=== PATIENT | male | born 1990 | race Asian ===

== ENCOUNTER 2017-10-10 23:21 | Inpatient (IN) | payer OTHER ==
--- NOTE | 2017-10-11 00:37 | PDOC ---
History of Present Illness - General Chief Complaint: Edema Stated Complaint: SWELLING TO BOTH LEGS AND SCROTUM X 5 DAYS History Source: Patient Exam Limitations: No Limitations - History of Present Illness Initial Comments: 10/11/17 01:16 27M no known sig PMHx (hasn't seen a doctor in >6 years) p/w cc of 1 week of progressive swelling to bilateral legs, extending to scrotum and abdomen over past 2 days. Feels fatigued when ambulating, and SOB. No CP, occasional palpitations. Past History - Travel Traveled outside of the country in the last 30 days: No - Past Medical History Allergies/Adverse Reactions: Allergies Allergy/AdvReac Type Severity Reaction Status Date / Time No Known Allergies Allergy Verified 10/10/17 23:23 Home Medications: Ambulatory Orders NK [No Known Home Medication] 10/10/17 COPD: No Other medical history: DENIES - Suicide/Smoking/Psychosocial Hx Smoking History: Never smoked Have you smoked in the past 12 months: No Information on smoking cessation initiated: No Hx Alcohol Use: No Drug/Substance Use Hx: No Substance Use Type: None Review of Systems - Review of Systems Able to Perform ROS?: Yes Constitutional: No: Chills, Fever HEENTM: No: Blurred Vision Respiratory: Yes: Cough, Shortness of Breath Cardiac (ROS): Yes: Edema. No: Chest Pain ABD/GI: Yes: Abdominal Distended Musculoskeletal: No: Back Pain, Muscle Pain, Muscle Weakness Neurological: No: Headache, Numbness, Weakness *Physical Exam - Vital Signs Last Vital Signs Temp Pulse Resp BP Pulse Ox 114 H 20 165/114 99 10/10/17 23:32 10/10/17 23:32 10/10/17 23:32 10/10/17 23:32 - Physical Exam General Appearance: Yes: Nourished, Obese. No: Appropriately Dressed, Apparent Distress HEENT: positive: Normal ENT Inspection, Symmetrical Neck: positive: Trachea midline. negative: Tender Respiratory/Chest: positive: Lungs Clear, Normal Breath Sounds. negative: Respiratory Distress Cardiovascular: positive: Regular Rhythm, S1, S2, Edema, Tachycardia Gastrointestinal/Abdominal: positive: Other (obese, +pitting edema to lower abdomen) Male Genitalia: positive: other (2+ pitting edema to scrotum) Extremity: positive: Swelling, Other (3+ pitting edema to bilateral LE, equal, nontender, no skin changes) Integumentary: positive: Normal Color, Dry, Warm Neurologic: positive: recreational sports director II-XII NML intact, Fully Oriented, Alert ED Treatment Course - LABORATORY CBC & Chemistry Diagram: 10/11/17 01:00 10/11/17 01:00 - Consult/PCP Case discussed with personal care physician: Adan Lentz (admit telemetry at [facility]) - Additional Consults Time Called: 05:00 Consult/PCP: Cam, ICU CHARGE HAND Reason/Comments: Pt to be admitted to ICU at [facility] when a bed is available Medical Decision Making - Medical Decision Making 10/11/17 01:21 Pt with progressiv pitting edema which began in bilateral legs, has progressed to scrotum and lower abd, c/w anasarca. No hx of renal or cardiac pathology. Also tachycardic (sinus), hypertensive. Ddx includes nephrotic syndrome, CHF, PE , ACS. Does have f/u tomorrow with a web designer. - labs including trop, pro bnp, d dimer - CXR - EKG - UA - reassess, anticipate admission 10/11/17 02:39 d dimer pos, will proceed with CT chest to r/o PE 10/11/17 02:57 Troponin 0.13, probnp in . Will give asa 162mg PO. Pt will require tele admission/echo/cards consult inpatient. Remains CP free. CT pending. 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 No gross evidence of PE but there was suboptimal opacification of the pulmonary arteries. Heart size is normal. The trachea and bronchi are patent. There is a 1.5cm thick pericardial effusion. There is a moderate-sized R pleural effusion with mild bibasilar atelectasis but no obvious pneumonia. There is mild scattered air trapping. No interstitial edema. No fractures identified. There is a small amount of incompletely seen ascites of uncertain cause. Moderate R pleural effusion Moderate size pericardial effusion Incompletely visualized small amount of ascites 10/11/17 05:[address] Lentz and CHARGE HAND Cam from ICU. Pt accepted to ICU pending an available bed. Will give PO labetalol for HTN. 10/11/17 05:17 Because of pericardial effusion, I'm apprehensive to give labetalol or any other anti-hypertensive as pt is currently stable. He does have elevated BP in ER, but it is most likely that it's been high for quite some time. There are no ICU beds, there are no interventional resources in this ER if pt decompensates. Right now, he looks well and BP has remained the same during his stay. Will hold labetalol, but will give lasix. 10/11/17 06:35 Pt still appears comfortable, no resp distress. Received IV lasix 40mg, BP now 175/105. RR on my exam is 18 breaths per minute at this time. Has urinated 3 times since lasix. I spoke again to ICU CHARGE HAND Cam - the RN finishing supervisor plastic sheets is reportedly working on making an ICU bed for pt at [facility]. Will sign patient out at 7am to am physician. *DC/Admit/Observation/Transfer Diagnosis at time of Disposition: CHF (congestive heart failure), Pericardial effusion - Discharge Dispostion Condition at time of disposition: Guarded Admit: Yes - Referrals - Patient Instructions - Post Discharge Activity
[2017-10-11 02:17] LABS: BASO % 0.4 % (0-2.0); EOS % 1.4 % (0-4.5); HEMATOCRIT 42.8 % (35.4-49); HEMOGLOBIN 14.2 GM/dL (11.7-16.9); LYMPH % 18.9 % (8-40); MCH 29.7 pg (25.7-33.7); MCHC 33.2 g/dl (32.0-35.9); MEAN CELL VOLUME 89.6 fl (80-96); MEAN PLT VOLUME 9.2 fl (7.5-11.1); MONO % 11.2 % (3.8-10.2); NEUT % 68.1 % (42.8-82.8); PLATELET COUNT 246 K/MM3 (134-434); RBC 4.78 M/mm3 (4.00-5.60); WHITE BLOOD COUNT 9.8 K/mm3 (4.0-10.0)
[2017-10-11 02:19] LABS: VENOUS PC02 44.7 mmHg (38-52); VENOUS PH 7.37 (7.32-7.42)
[2017-10-11 02:20] LABS: VENOUS PO2 34.2 mmHg (28-48)
[2017-10-11 02:26] LABS: INR 1.27 (0.82-1.09); PROTHROMBIN TIME (PATIENT) 14.4 SEC (9.98-11.88)
[2017-10-11 02:29] LABS: ACTIVATED PTT 32.6 SECONDS (26.9-34.4)
[2017-10-11 02:40] LABS: N-TERMINAL BNP 2148.16 pg/ml (5-125)
[2017-10-11] MEDS ORDERED: ASPIRIN 81 MG CHEWABLE TABLETS ONE (02:49)
[2017-10-11] MEDS ORDERED: ASPIRIN 81 MG CHEWABLE TABLETS PO ONE (02:49)
[2017-10-11 03:06] LABS: GLUCOSE,RANDOM 99 mg/dl (74-106)
[2017-10-11 03:07] LABS: ANION GAP 12 (8-16); BLOOD UREA NITROGEN 14 mg/dl (7-18); CALCIUM 8.7 mg/dl (8.4-10.2); CHLORIDE 106 mmol/L (98-107); CO2 26 mmol/L (22-28); CREATININE 0.9 mg/dl (0.6-1.3); SODIUM 144 mmol/L (136-145); TOT PROT 7.5 g/dl (6.4-8.3)
[2017-10-11 03:08] LABS: ALBUMIN 3.8 g/dl (3.5-5.0); ALK PHOS 72 U/L (32-92); BILIRUBIN,TOTAL 1.2 mg/dl (0.2-1.0); SGOT/AST 31 U/L (10-42); SGPT/ALT 33 U/L (10-40)
[2017-10-11 03:38] LABS: URINE APPEARANCE CLEAR; URINE BILIRUBIN NEGATIVE (<2.0 mg/dL); URINE BLOOD NEGATIVE (NEGATIVE); URINE COLOR YELLOW; URINE GLUCOSE (UA) NEGATIVE (NEGATIVE); URINE KETONE NEGATIVE (NEGATIVE); URINE LEUK ESTERASE NEGATIVE (NEGATIVE); URINE NITRITE NEGATIVE (NEGATIVE); URINE UROBILINOGEN NEGATIVE mg/dL (0.2-1.0)
[2017-10-11 03:44] LABS: URINE PROTEIN 2+ (NEGATIVE)
[2017-10-11 03:46] LABS: URINE BACTERIA RARE /hpf (NONE SEEN); URINE MUCUS RARE
[2017-10-11] MEDS ORDERED: LABETALOL HCL 5 MG/1 ML (100MG/20 ML VIAL) IVPUSH ONE (04:46)
[2017-10-11] MEDS ORDERED: LABETALOL HCL 5 MG/1 ML (100MG/20 ML VIAL) ONE (04:52)
[2017-10-11] MEDS ORDERED: FUROSEMIDE 40 MG/4 ML INJECTABLE VIAL IVPUSH ONE ×2 (05:33→16:15)
[2017-10-11] MEDS ORDERED: HEPARIN NA (PORCINE) 5,000 UNITS/ML 1ML VIAL ONE ×2 (05:53→14:36)
[2017-10-11] MEDS ORDERED: FUROSEMIDE 40 MG/4 ML INJECTABLE VIAL ONE (05:54)
[2017-10-11] MEDS: HEPARIN NA (PORCINE) 5,000 UNITS/ML 1ML VIAL SQ SCH ×3 (06:11→23:09)
[2017-10-11 07:19] LABS: BASO % 0.3 % (0-2.0); EOS % 1.3 % (0-4.5); HEMATOCRIT 42.5 % (35.4-49); HEMOGLOBIN 13.9 GM/dL (11.7-16.9); LYMPH % 19.1 % (8-40); MCH 29.3 pg (25.7-33.7); MCHC 32.6 g/dl (32.0-35.9); MEAN CELL VOLUME 89.9 fl (80-96); MEAN PLT VOLUME 9.3 fl (7.5-11.1); MONO % 9.6 % (3.8-10.2); NEUT % 69.7 % (42.8-82.8); PLATELET COUNT 250 K/MM3 (134-434); RBC 4.72 M/mm3 (4.00-5.60); RDW 14.9 % (11.9-15.9); WHITE BLOOD COUNT 10.7 K/mm3 (4.0-10.0)
[2017-10-11 08:50] LABS: MAGNESIUM 2.1 mg/dL (1.8-2.4)
[2017-10-11 12:10] LABS: ANION GAP 8 (8-16); BLOOD UREA NITROGEN 11 mg/dl (7-18); CALCIUM 8.8 mg/dl (8.4-10.2); CHLORIDE 102 mmol/L (98-107); CO2 26 mmol/L (22-28); CREATININE 0.8 mg/dl (0.6-1.3); GLUCOSE,RANDOM 92 mg/dl (74-106); POTASSIUM 3.3 mmol/L (3.5-5.1); SODIUM 136 mmol/L (136-145)
[2017-10-11 15:46] VITALS: BMI 49.0
--- NOTE | 2017-10-11 16:08 | CONSULT ---
Consultation: REQUESTING PROVIDER: CONSULT REQUEST: We have been asked to medically evaluate this patient for lower extremity edema. HISTORY OF PRESENT ILLNESS: Mr. Craig is a 27 yo male w/ no known pmh (no physician visits in 6+ years) who presented to [place] [facility] complaining of 1 week of progressive (painless) swelling in both legs. He reports that approximately 4 days ago his scrotum started swelling as well and has waxed and wained in size over this time period. He presented as the swelling got worse in his scrotum and he was concerned. He has not previously seen a doctor in many years. Mr. Craig further reports that he is usually able to walk without difficulty but that he has had difficulty standing for longer periods of time lately. He further reports that he had an illness last may that consisted of cough and sinus symptoms with yellow/green sputum but that they never fully resolved and he has continued to have cough productive of thick clear sputum since this time. He denies chest pain, headache, and dizziness. Denies fever, chills, nausea, vomit, diarrhea, and constipation. Denies dysuria, frequency, urgency, and hematuria. In ER patient was noted to be tachycardic in sinus rhythm with hypertension. Chest CT was ordered when patient was noted to have positive d-dimer; positive for moderate right pleural effusion with bibasilar atelectasis and moderate pericardial effusion (1.5cm thick) without obvious pneumonia. Heart size is normal. The trachea and bronchi are patent. Patient remained comfortable throughout ER course, received IV lasix 40mg with BP 175/105 and urinated 3 times since lasix. Transferred to ICU for further care. REVIEW OF SYSTEMS: CONSTITUTIONAL: Absent: fever, chills, diaphoresis, generalized weakness, malaise, loss of appetite, weight change HEENT: Absent: rhinorrhea, nasal congestion, throat pain, throat swelling, difficulty swallowing, mouth swelling, ear pain, eye pain, visual changes CARDIOVASCULAR: Absent: chest pain, syncope, palpitations, irregular heart rate, lightheadedness , peripheral edema RESPIRATORY: +Cough as described with mild dyspnea on exertion. Absent: Orthopnea, wheezing, stridor, hemoptysis GASTROINTESTINAL: Absent: abdominal pain, abdominal distension, nausea, vomiting, diarrhea, constipation, melena, hematochezia GENITOURINARY: Absent: dysuria, frequency, urgency, hesitancy, hematuria, flank pain, genital pain MUSCULOSKELETAL: +Bilateral leg swelling with extension to scrotum that has increased over the past week. Absent: myalgia, arthralgia, back pain, neck pain SKIN: Absent: rash, itching, pallor HEMATOLOGIC/IMMUNOLOGIC: Absent: easy bleeding, easy bruising, lymphadenopathy, frequent infections ENDOCRINE: Absent: unexplained weight gain, unexplained weight loss, heat intolerance, cold intolerance NEUROLOGIC: Absent: headache, focal weakness or paresthesias, dizziness, unsteady gait, seizure, mental status changes, bladder or bowel incontinence PSYCHIATRIC: Absent: anxiety, depression, suicidal or homicidal ideation, hallucinations. PHYSICAL EXAMINATION Vital Signs - 24 hr 10/10/17 10/10/17 10/11/17 23:25 23:32 02:38 Temperature Pulse Rate 116 H Pulse Rate [ Apical] Pulse Rate [ 114 H 116 H Left] Respiratory 20 20 20 Rate Blood Pressure 178/128 Blood Pressure [Left Arm] Blood Pressure 165/114 192/131 [Right] O2 Sat by Pulse 99 99 98 Oximetry (%) 10/11/17 10/11/17 10/11/17 05:39 06:26 07:15 Temperature Pulse Rate Pulse Rate [ 115 H Apical] Pulse Rate [ 116 H 117 H Left] Respiratory 26 H 28 H 20 Rate Blood Pressure Blood Pressure 168/109 [Left Arm] Blood Pressure 180/125 175/105 [Right] O2 Sat by Pulse 97 97 98 Oximetry (%) 10/11/17 10/11/17 10/11/17 08:09 08:11 09:00 Temperature Pulse Rate 110 H Pulse Rate [ 110 H 110 H Apical] Pulse Rate [ Left] Respiratory 24 28 H Rate Blood Pressure Blood Pressure 175/111 [Left Arm] Blood Pressure [Right] O2 Sat by Pulse 97 97 96 Oximetry (%) 10/11/17 10/11/17 10/11/17 10:07 10:31 12:15 Temperature 98.7 F Pulse Rate Pulse Rate [ 109 H 111 H Apical] Pulse Rate [ Left] Respiratory 28 H 26 H Rate Blood Pressure Blood Pressure 177/109 155/103 [Left Arm] Blood Pressure [Right] O2 Sat by Pulse 95 96 Oximetry (%) 10/11/17 10/11/17 10/11/17 12:51 14:40 15:00 Temperature 97.8 F 97.8 F 98.1 F Pulse Rate 112 H 112 H 110 H Pulse Rate [ Apical] Pulse Rate [ Left] Respiratory 26 H 26 H 23 Rate Blood Pressure 155/101 155/101 176/112 Blood Pressure [Left Arm] Blood Pressure [Right] O2 Sat by Pulse Oximetry (%) 10/11/17 10/11/17 15:27 15:58 Temperature 98.9 F Pulse Rate 110 H 112 H Pulse Rate [ Apical] Pulse Rate [ Left] Respiratory 26 H 25 H Rate Blood Pressure 193/131 172/116 Blood Pressure [Left Arm] Blood Pressure [Right] O2 Sat by Pulse Oximetry (%) GENERAL: Awake, alert, and fully oriented, in no acute distress. HEAD: Normal with no signs of trauma. EYES: Pupils equal, round and reactive to light, extraocular movements intact, sclera anicteric, conjunctiva clear. No lid lag. EARS, NOSE, THROAT: Ears normal, nares patent, oropharynx clear without exudates. Moist mucous membranes. NECK: Normal range of motion, supple without lymphadenopathy, JVD, or masses. LUNGS: Breath sounds equal, clear to auscultation bilaterally. No wheezes, and no crackles. No accessory muscle use. HEART: Regular rate and rhythm, normal S1 and S2 without murmur, rub or gallop. ABDOMEN: Soft, nontender, not distended, normoactive bowel sounds, no guarding, no rebound, no masses. No hepatomegaly or splenomegaly. MUSCULOSKELETAL: Normal range of motion at all joints. No bony deformities or tenderness. No CVA tenderness. UPPER EXTREMITIES: 2+ pulses, warm, well-perfused. No cyanosis. No clubbing. Cap refill <2 seconds. No peripheral edema. LOWER EXTREMITIES: +Bilateral lower extremities 2+ edema noted. Patient able to range legs however swelling extends up to include lower stomach and scrotum which is swollen to approximately the size of a baseball (3+ edema). 2+ pulses, warm, well-perfused. No calf tenderness. NEUROLOGICAL: Cranial nerves II-XII intact. Normal speech. Normal gait. PSYCHIATRIC: Cooperative. Good eye contact. Appropriate mood and affect. SKIN: Warm, dry, normal turgor, no rashes or lesions noted. Laboratory Results - last 24 hr 10/11/17 10/11/17 10/11/17 01:00 01:00 01:00 WBC 9.8 D RBC 4.78 Hgb 14.2 Hct 42.8 MCV 89.6 MCH 29.7 MCHC 33.2 RDW 15.0 D Plt Count 246 MPV 9.2 D Neutrophils % 68.1 Lymphocytes % 18.9 Monocytes % 11.2 H Eosinophils % 1.4 Basophils % 0.4 PT with INR 14.40 H INR 1.27 H PTT (Actin FS) 32.6 D-Dimer VBG pH 7.37 POC VBG pCO2 44.7 POC VBG pO2 34.2 Mixed VBG HCO3 25.4 H Sodium Potassium Chloride Carbon Dioxide Anion Gap BUN Creatinine Creat Clearance w eGFR Random Glucose Hemoglobin A1c % Calcium Magnesium Total Bilirubin AST ALT Alkaline Phosphatase Creatine Kinase Creatine Kinase Index CK-MB (CK-2) Troponin I B-Natriuretic Peptide Total Protein Albumin Triglycerides Cholesterol Total LDL Cholesterol HDL Cholesterol Urine Color Urine Appearance Urine pH Ur Specific [place] Urine Protein Urine Glucose (UA) Urine Ketones Urine Blood Urine Nitrite Urine Bilirubin Urine Urobilinogen Ur Leukocyte Esterase Urine WBC (Auto) Urine RBC (Auto) Urine Bacteria Urine Mucus 10/11/17 10/11/17 10/11/17 01:00 01:00 01:00 WBC RBC Hgb Hct MCV MCH MCHC RDW Plt Count MPV Neutrophils % Lymphocytes % Monocytes % Eosinophils % Basophils % PT with INR INR PTT (Actin FS) D-Dimer 718 H VBG pH POC VBG pCO2 POC VBG pO2 Mixed VBG HCO3 Sodium 144 Potassium 4.0 Chloride 106 Carbon Dioxide 26 Anion Gap 12 BUN 14 Creatinine 0.9 Creat Clearance w eGFR > 60 Random Glucose 99 Hemoglobin A1c % Calcium 8.7 Magnesium Total Bilirubin 1.2 H AST 31 ALT 33 Alkaline Phosphatase 72 Creatine Kinase 191 Creatine Kinase Index 0.6 CK-MB (CK-2) 1.2 Troponin I 0.13 H 0.08 H B-Natriuretic Peptide 2148.16 H Total Protein 7.5 Albumin 3.8 Triglycerides Cholesterol Total LDL Cholesterol HDL Cholesterol Urine Color Urine Appearance Urine pH Ur Specific [place] Urine Protein Urine Glucose (UA) Urine Ketones Urine Blood Urine Nitrite Urine Bilirubin Urine Urobilinogen Ur Leukocyte Esterase Urine WBC (Auto) Urine RBC (Auto) Urine Bacteria Urine Mucus 10/11/17 10/11/17 10/11/17 03:00 06:00 06:00 WBC RBC Hgb Hct MCV MCH MCHC RDW Plt Count MPV Neutrophils % Lymphocytes % Monocytes % Eosinophils % Basophils % PT with INR INR PTT (Actin FS) D-Dimer VBG pH POC VBG pCO2 POC VBG pO2 Mixed VBG HCO3 Sodium Potassium Chloride Carbon Dioxide Anion Gap BUN Creatinine Creat Clearance w eGFR Random Glucose Hemoglobin A1c % Calcium Magnesium 2.1 Total Bilirubin AST ALT Alkaline Phosphatase Creatine Kinase 168 Creatine Kinase Index 0.6 CK-MB (CK-2) 1.089 Troponin I 0.09 H D B-Natriuretic Peptide Total Protein Albumin Triglycerides 58 Cholesterol 122 D Total LDL Cholesterol 104 H HDL Cholesterol 22 L D Urine Color Yellow Urine Appearance Clear Urine pH 6.0 Ur Specific [place] 1.015 Urine Protein 2+ H Urine Glucose (UA) Negative Urine Ketones Negative Urine Blood Negative Urine Nitrite Negative Urine Bilirubin Negative Urine Urobilinogen Negative Ur Leukocyte Esterase Negative Urine WBC (Auto) 1 Urine RBC (Auto) <1 Urine Bacteria Rare Urine Mucus Rare 10/11/17 10/11/17 10/11/17 06:00 06:00 06:00 WBC 10.7 H RBC 4.72 Hgb 13.9 Hct 42.5 MCV 89.9 MCH 29.3 MCHC 32.6 RDW 14.9 Plt Count 250 MPV 9.3 Neutrophils % 69.7 Lymphocytes % 19.1 Monocytes % 9.6 Eosinophils % 1.3 Basophils % 0.3 PT with INR INR PTT (Actin FS) D-Dimer VBG pH POC VBG pCO2 POC VBG pO2 Mixed VBG HCO3 Sodium Potassium Chloride Carbon Dioxide Anion Gap BUN Creatinine Creat Clearance w eGFR Random Glucose Hemoglobin A1c % 6.2 H Calcium Magnesium Total Bilirubin AST ALT Alkaline Phosphatase Creatine Kinase Creatine Kinase Index CK-MB (CK-2) Troponin I Cancelled B-Natriuretic Peptide Total Protein Albumin Triglycerides Cholesterol Total LDL Cholesterol HDL Cholesterol Urine Color Urine Appearance Urine pH Ur Specific [place] Urine Protein Urine Glucose (UA) Urine Ketones Urine Blood Urine Nitrite Urine Bilirubin Urine Urobilinogen Ur Leukocyte Esterase Urine WBC (Auto) Urine RBC (Auto) Urine Bacteria Urine Mucus 10/11/17 10/11/17 11:15 11:15 WBC RBC Hgb Hct MCV MCH MCHC RDW Plt Count MPV Neutrophils % Lymphocytes % Monocytes % Eosinophils % Basophils % PT with INR INR PTT (Actin FS) D-Dimer VBG pH POC VBG pCO2 POC VBG pO2 Mixed VBG HCO3 Sodium 136 Potassium 3.3 L Chloride 102 Carbon Dioxide 26 Anion Gap 8 BUN 11 D Creatinine 0.8 Creat Clearance w eGFR Random Glucose 92 Hemoglobin A1c % Calcium 8.8 Magnesium Total Bilirubin AST ALT Alkaline Phosphatase Creatine Kinase Creatine Kinase Index CK-MB (CK-2) Troponin I 0.05 D B-Natriuretic Peptide Total Protein Albumin Triglycerides Cholesterol Total LDL Cholesterol HDL Cholesterol Urine Color Urine Appearance Urine pH Ur Specific [place] Urine Protein Urine Glucose (UA) Urine Ketones Urine Blood Urine Nitrite Urine Bilirubin Urine Urobilinogen Ur Leukocyte Esterase Urine WBC (Auto) Urine RBC (Auto) Urine Bacteria Urine Mucus Active Medications Generic Name Dose Route Start Last Admin Trade Name Freq PRN Reason Stop Dose Admin Heparin Sodium (Porcine) 5,000 unit 10/11/17 06:00 10/11/17 14:39 Heparin - SQ 5,000 unit TID RADHA Administration Potassium Chloride 40 meq 10/11/17 16:43 10/11/17 15:55 K-Dur - PO 10/11/17 16:44 40 meq ONCE ONE Administration ASSESSMENT/PLAN: Mr. Craig is a 27 yo male w/ no known medical history who presents in fluid overload with 2+ lower extremity and 3+ scrotal edema. Echo concerning for heart failure with CT showing pleural and cardiac effusion. Neuro: Neurologically at baseline Respiratory: -Right pleural effusion -Will monitor with CXR - patient currently satting 97% on room air Cardiovascular: -Moderate pericardial effusion -EF noted to be 44.6% on Echo; wet read by assistant service manager questioned this value and suspected it was closer to 35%. -Patient currently receiving Lasix for diuresis -Lisinopril / Coreg for BP control -Dr. Miller consulted for further evaluation Renal: -Will continue to follow BUN/CR FEN: -Will avoid fluids due to fluid overload status. Currently diuresing with lasix boluses -Electrolyte replacement PRN -Sodium restricted diet PPX: -SQH Dispo: We will continue to follow the patient. Thank you for this consultative opportunity. Visit type - Emergency Visit Emergency Visit: Yes ED Registration Date: 10/11/17 Care time: The patient presented to the Emergency Department on the above date and was hospitalized for further evaluation of their emergent condition. - New Patient This patient is new to me today: Yes Date on this admission: 10/11/17 - Critical Care Critical Care patient: Yes Total Critical Care Time (in minutes): 45 Critical Care Statement: The care of this patient involved high complexity decision making to prevent further life threatening deterioration of the patient 's condition and/or to evaluate & treat vital organ system(s) failure or risk of failure.
[2017-10-11] MEDS ORDERED: LISINOPRIL 5 MG TABLET (FP) PO ONE (16:14)
--- NOTE | 2017-10-11 16:36 | HP ---
CHIEF COMPLAINT: PCP: HISTORY OF PRESENT ILLNESS: ER course was notable for: (1) (2) (3) Recent Travel: PAST MEDICAL HISTORY: PAST SURGICAL HISTORY: Social History: Smoking: Alcohol: Drugs: Family History: Allergies No Known Allergies Allergy (Verified 10/10/17 23:23) HOME MEDICATIONS: Home Medications Medication Instructions Recorded NK [No Known Home Medication] 10/10/17 REVIEW OF SYSTEMS CONSTITUTIONAL: Absent: fever, chills, diaphoresis, generalized weakness, malaise, loss of appetite, weight change HEENT: Absent: rhinorrhea, nasal congestion, throat pain, throat swelling, difficulty swallowing, mouth swelling, ear pain, eye pain, visual changes CARDIOVASCULAR: Absent: chest pain, syncope, palpitations, irregular heart rate, lightheadedness , peripheral edema RESPIRATORY: Absent: cough, shortness of breath, dyspnea with exertion, orthopnea, wheezing, stridor, hemoptysis GASTROINTESTINAL: Absent: abdominal pain, abdominal distension, nausea, vomiting, diarrhea, constipation, melena, hematochezia GENITOURINARY: Absent: dysuria, frequency, urgency, hesitancy, hematuria, flank pain, genital pain MUSCULOSKELETAL: Absent: myalgia, arthralgia, joint swelling, back pain, neck pain SKIN: Absent: rash, itching, pallor HEMATOLOGIC/IMMUNOLOGIC: Absent: easy bleeding, easy bruising, lymphadenopathy, frequent infections ENDOCRINE: Absent: unexplained weight gain, unexplained weight loss, heat intolerance, cold intolerance NEUROLOGIC: Absent: headache, focal weakness or paresthesias, dizziness, unsteady gait, seizure, mental status changes, bladder or bowel incontinence PSYCHIATRIC: Absent: anxiety, depression, suicidal or homicidal ideation, hallucinations. PHYSICAL EXAMINATION Vital Signs - 24 hr 10/10/17 10/10/17 10/11/17 23:25 23:32 02:38 Temperature Pulse Rate 116 H Pulse Rate [ Apical] Pulse Rate [ 114 H 116 H Left] Respiratory 20 20 20 Rate Blood Pressure 178/128 Blood Pressure [Left Arm] Blood Pressure 165/114 192/131 [Right] O2 Sat by Pulse 99 99 98 Oximetry (%) 10/11/17 10/11/17 10/11/17 05:39 06:26 07:15 Temperature Pulse Rate Pulse Rate [ 115 H Apical] Pulse Rate [ 116 H 117 H Left] Respiratory 26 H 28 H 20 Rate Blood Pressure Blood Pressure 168/109 [Left Arm] Blood Pressure 180/125 175/105 [Right] O2 Sat by Pulse 97 97 98 Oximetry (%) 10/11/17 10/11/17 10/11/17 08:09 08:11 09:00 Temperature Pulse Rate 110 H Pulse Rate [ 110 H 110 H Apical] Pulse Rate [ Left] Respiratory 24 28 H Rate Blood Pressure Blood Pressure 175/111 [Left Arm] Blood Pressure [Right] O2 Sat by Pulse 97 97 96 Oximetry (%) 10/11/17 10/11/17 10/11/17 10:07 10:31 12:15 Temperature 98.7 F Pulse Rate Pulse Rate [ 109 H 111 H Apical] Pulse Rate [ Left] Respiratory 28 H 26 H Rate Blood Pressure Blood Pressure 177/109 155/103 [Left Arm] Blood Pressure [Right] O2 Sat by Pulse 95 96 Oximetry (%) 10/11/17 10/11/17 10/11/17 12:51 14:40 15:00 Temperature 97.8 F 97.8 F 98.1 F Pulse Rate 112 H 112 H 110 H Pulse Rate [ Apical] Pulse Rate [ Left] Respiratory 26 H 26 H 23 Rate Blood Pressure 155/101 155/101 176/112 Blood Pressure [Left Arm] Blood Pressure [Right] O2 Sat by Pulse Oximetry (%) 10/11/17 10/11/17 10/11/17 15:27 15:58 15:59 Temperature 98.9 F Pulse Rate 110 H 112 H Pulse Rate [ Apical] Pulse Rate [ Left] Respiratory 26 H 25 H Rate Blood Pressure 193/131 172/116 Blood Pressure [Left Arm] Blood Pressure [Right] O2 Sat by Pulse 96 Oximetry (%) GENERAL: Awake, alert, and fully oriented, in no acute distress. HEAD: Normal with no signs of trauma. EYES: Pupils equal, round and reactive to light, extraocular movements intact, sclera anicteric, conjunctiva clear. No lid lag. EARS, NOSE, THROAT: Ears normal, nares patent, oropharynx clear without exudates. Moist mucous membranes. NECK: Normal range of motion, supple without lymphadenopathy, JVD, or masses. LUNGS: Breath sounds equal, clear to auscultation bilaterally. No wheezes, and no crackles. No accessory muscle use. HEART: Regular rate and rhythm, normal S1 and S2 without murmur, rub or gallop. ABDOMEN: Soft, nontender, not distended, normoactive bowel sounds, no guarding, no rebound, no masses. No hepatomegaly or splenomegaly. MUSCULOSKELETAL: Normal range of motion at all joints. No bony deformities or tenderness. No CVA tenderness. UPPER EXTREMITIES: 2+ pulses, warm, well-perfused. No cyanosis. No clubbing. No peripheral edema. LOWER EXTREMITIES: 2+ pulses, warm, well-perfused. No calf tenderness. No peripheral edema. NEUROLOGICAL: Cranial nerves II-XII intact. Normal speech. Normal gait. PSYCHIATRIC: Cooperative. Good eye contact. Appropriate mood and affect. SKIN: Warm, dry, normal turgor, no rashes or lesions noted, normal capillary refill. Laboratory Results - last 24 hr 10/11/17 10/11/17 10/11/17 01:00 01:00 01:00 WBC 9.8 D RBC 4.78 Hgb 14.2 Hct 42.8 MCV 89.6 MCH 29.7 MCHC 33.2 RDW 15.0 D Plt Count 246 MPV 9.2 D Neutrophils % 68.1 Lymphocytes % 18.9 Monocytes % 11.2 H Eosinophils % 1.4 Basophils % 0.4 PT with INR 14.40 H INR 1.27 H PTT (Actin FS) 32.6 D-Dimer VBG pH 7.37 POC VBG pCO2 44.7 POC VBG pO2 34.2 Mixed VBG HCO3 25.4 H Sodium Potassium Chloride Carbon Dioxide Anion Gap BUN Creatinine Creat Clearance w eGFR Random Glucose Hemoglobin A1c % Calcium Magnesium Total Bilirubin AST ALT Alkaline Phosphatase Creatine Kinase Creatine Kinase Index CK-MB (CK-2) Troponin I B-Natriuretic Peptide Total Protein Albumin Triglycerides Cholesterol Total LDL Cholesterol HDL Cholesterol Urine Color Urine Appearance Urine pH Ur Specific [place] Urine Protein Urine Glucose (UA) Urine Ketones Urine Blood Urine Nitrite Urine Bilirubin Urine Urobilinogen Ur Leukocyte Esterase Urine WBC (Auto) Urine RBC (Auto) Urine Bacteria Urine Mucus 10/11/17 10/11/17 10/11/17 01:00 01:00 01:00 WBC RBC Hgb Hct MCV MCH MCHC RDW Plt Count MPV Neutrophils % Lymphocytes % Monocytes % Eosinophils % Basophils % PT with INR INR PTT (Actin FS) D-Dimer 718 H VBG pH POC VBG pCO2 POC VBG pO2 Mixed VBG HCO3 Sodium 144 Potassium 4.0 Chloride 106 Carbon Dioxide 26 Anion Gap 12 BUN 14 Creatinine 0.9 Creat Clearance w eGFR > 60 Random Glucose 99 Hemoglobin A1c % Calcium 8.7 Magnesium Total Bilirubin 1.2 H AST 31 ALT 33 Alkaline Phosphatase 72 Creatine Kinase 191 Creatine Kinase Index 0.6 CK-MB (CK-2) 1.2 Troponin I 0.13 H 0.08 H B-Natriuretic Peptide 2148.16 H Total Protein 7.5 Albumin 3.8 Triglycerides Cholesterol Total LDL Cholesterol HDL Cholesterol Urine Color Urine Appearance Urine pH Ur Specific [place] Urine Protein Urine Glucose (UA) Urine Ketones Urine Blood Urine Nitrite Urine Bilirubin Urine Urobilinogen Ur Leukocyte Esterase Urine WBC (Auto) Urine RBC (Auto) Urine Bacteria Urine Mucus 10/11/17 10/11/17 10/11/17 03:00 06:00 06:00 WBC RBC Hgb Hct MCV MCH MCHC RDW Plt Count MPV Neutrophils % Lymphocytes % Monocytes % Eosinophils % Basophils % PT with INR INR PTT (Actin FS) D-Dimer VBG pH POC VBG pCO2 POC VBG pO2 Mixed VBG HCO3 Sodium Potassium Chloride Carbon Dioxide Anion Gap BUN Creatinine Creat Clearance w eGFR Random Glucose Hemoglobin A1c % Calcium Magnesium 2.1 Total Bilirubin AST ALT Alkaline Phosphatase Creatine Kinase 168 Creatine Kinase Index 0.6 CK-MB (CK-2) 1.089 Troponin I 0.09 H D B-Natriuretic Peptide Total Protein Albumin Triglycerides 58 Cholesterol 122 D Total LDL Cholesterol 104 H HDL Cholesterol 22 L D Urine Color Yellow Urine Appearance Clear Urine pH 6.0 Ur Specific [place] 1.015 Urine Protein 2+ H Urine Glucose (UA) Negative Urine Ketones Negative Urine Blood Negative Urine Nitrite Negative Urine Bilirubin Negative Urine Urobilinogen Negative Ur Leukocyte Esterase Negative Urine WBC (Auto) 1 Urine RBC (Auto) <1 Urine Bacteria Rare Urine Mucus Rare 10/11/17 10/11/17 10/11/17 06:00 06:00 06:00 WBC 10.7 H RBC 4.72 Hgb 13.9 Hct 42.5 MCV 89.9 MCH 29.3 MCHC 32.6 RDW 14.9 Plt Count 250 MPV 9.3 Neutrophils % 69.7 Lymphocytes % 19.1 Monocytes % 9.6 Eosinophils % 1.3 Basophils % 0.3 PT with INR INR PTT (Actin FS) D-Dimer VBG pH POC VBG pCO2 POC VBG pO2 Mixed VBG HCO3 Sodium Potassium Chloride Carbon Dioxide Anion Gap BUN Creatinine Creat Clearance w eGFR Random Glucose Hemoglobin A1c % 6.2 H Calcium Magnesium Total Bilirubin AST ALT Alkaline Phosphatase Creatine Kinase Creatine Kinase Index CK-MB (CK-2) Troponin I Cancelled B-Natriuretic Peptide Total Protein Albumin Triglycerides Cholesterol Total LDL Cholesterol HDL Cholesterol Urine Color Urine Appearance Urine pH Ur Specific [place] Urine Protein Urine Glucose (UA) Urine Ketones Urine Blood Urine Nitrite Urine Bilirubin Urine Urobilinogen Ur Leukocyte Esterase Urine WBC (Auto) Urine RBC (Auto) Urine Bacteria Urine Mucus 10/11/17 10/11/17 11:15 11:15 WBC RBC Hgb Hct MCV MCH MCHC RDW Plt Count MPV Neutrophils % Lymphocytes % Monocytes % Eosinophils % Basophils % PT with INR INR PTT (Actin FS) D-Dimer VBG pH POC VBG pCO2 POC VBG pO2 Mixed VBG HCO3 Sodium 136 Potassium 3.3 L Chloride 102 Carbon Dioxide 26 Anion Gap 8 BUN 11 D Creatinine 0.8 Creat Clearance w eGFR Random Glucose 92 Hemoglobin A1c % Calcium 8.8 Magnesium Total Bilirubin AST ALT Alkaline Phosphatase Creatine Kinase Creatine Kinase Index CK-MB (CK-2) Troponin I 0.05 D B-Natriuretic Peptide Total Protein Albumin Triglycerides Cholesterol Total LDL Cholesterol HDL Cholesterol Urine Color Urine Appearance Urine pH Ur Specific [place] Urine Protein Urine Glucose (UA) Urine Ketones Urine Blood Urine Nitrite Urine Bilirubin Urine Urobilinogen Ur Leukocyte Esterase Urine WBC (Auto) Urine RBC (Auto) Urine Bacteria Urine Mucus ASSESSMENT/PLAN: Hospitalist Screening - Colonoscopy Questionnaire Colonoscopy Questionnaire: Colonoscopy Questionnaire
--- NOTE | 2017-10-11 16:39 | HP ---
CHIEF COMPLAINT: " i have scrotal swelling" PCP: none HISTORY OF PRESENT ILLNESS: This is a 27 yo m with remote history of HTN (informed 6 yrs ago during physical , no physician f/u), not on any medication, who presents due to scrotal edema x 3 days. He also reports worsening LE edema, now extending to his lower abdomen x 2 w, decreased exercise tolerance and cough productive of white sputm since may, which was preceded by a brief mild febrile illness. He has not has his BP measured in 6 yrs and does not know what it was ehen he was told its elevated. he does have a family history if HTn starting in 30's in father and hypothyroidism starting in 30's in aunt. There is also remote family history of DM2. There is not family history OF CHF or CAD. He denies orthopnea, palpitations, cp or pressure, n/v, loss of appetite, lump in throat. he suspect weight gain but has not weighed himself. He denies alcohol or drug use. Denies heat/cold intolerance. he can walk several blocks w/o sob but feels sob after climbing one flight of stairs. patient urinated 5 L after 40 IV lasix last night and states his edema is better ER course was notable for: (1) labs (2)cxr, cta (3)lasix Recent Travel: denies PAST MEDICAL HISTORY: as above PAST SURGICAL HISTORY: denies Social History: moderately active Smoking: denies Alcohol:denies Drugs: denies Family History: as above Allergies No Known Allergies Allergy (Verified 10/10/17 23:23) HOME MEDICATIONS: Home Medications Medication Instructions Recorded NK [No Known Home Medication] 10/10/17 REVIEW OF SYSTEMS CONSTITUTIONAL: Absent: fever, chills, diaphoresis, generalized weakness, malaise, loss of appetite HEENT: Absent: rhinorrhea, nasal congestion, throat pain CARDIOVASCULAR: Absent: chest pain, syncope, palpitations, irregular heart rate, lightheadedness RESPIRATORY: Absent: orthopnea, wheezing, stridor, hemoptysis GASTROINTESTINAL: Absent: abdominal pain, abdominal distension, nausea, vomiting, diarrhea, constipation GENITOURINARY: Absent: dysuria MUSCULOSKELETAL: Absent: back pain, neck pain SKIN: Absent: rash, itching, pallor HEMATOLOGIC/IMMUNOLOGIC: Absent: frequent infections ENDOCRINE: Absent:heat intolerance, cold intolerance NEUROLOGIC: Absent: headache, focal weakness or paresthesias PSYCHIATRIC: Absent: anxiety, depression PHYSICAL EXAMINATION Vital Signs - 24 hr 10/10/17 10/10/17 10/11/17 23:25 23:32 02:38 Temperature Pulse Rate 116 H Pulse Rate [ Apical] Pulse Rate [ 114 H 116 H Left] Respiratory 20 20 20 Rate Blood Pressure 178/128 Blood Pressure [Left Arm] Blood Pressure 165/114 192/131 [Right] O2 Sat by Pulse 99 99 98 Oximetry (%) 10/11/17 10/11/17 10/11/17 05:39 06:26 07:15 Temperature Pulse Rate Pulse Rate [ 115 H Apical] Pulse Rate [ 116 H 117 H Left] Respiratory 26 H 28 H 20 Rate Blood Pressure Blood Pressure 168/109 [Left Arm] Blood Pressure 180/125 175/105 [Right] O2 Sat by Pulse 97 97 98 Oximetry (%) 10/11/17 10/11/17 10/11/17 08:09 08:11 09:00 Temperature Pulse Rate 110 H Pulse Rate [ 110 H 110 H Apical] Pulse Rate [ Left] Respiratory 24 28 H Rate Blood Pressure Blood Pressure 175/111 [Left Arm] Blood Pressure [Right] O2 Sat by Pulse 97 97 96 Oximetry (%) 10/11/17 10/11/17 10/11/17 10:07 10:31 12:15 Temperature 98.7 F Pulse Rate Pulse Rate [ 109 H 111 H Apical] Pulse Rate [ Left] Respiratory 28 H 26 H Rate Blood Pressure Blood Pressure 177/109 155/103 [Left Arm] Blood Pressure [Right] O2 Sat by Pulse 95 96 Oximetry (%) 10/11/17 10/11/17 10/11/17 12:51 14:40 15:00 Temperature 97.8 F 97.8 F 98.1 F Pulse Rate 112 H 112 H 110 H Pulse Rate [ Apical] Pulse Rate [ Left] Respiratory 26 H 26 H 23 Rate Blood Pressure 155/101 155/101 176/112 Blood Pressure [Left Arm] Blood Pressure [Right] O2 Sat by Pulse Oximetry (%) 10/11/17 10/11/17 10/11/17 15:27 15:58 15:59 Temperature 98.9 F Pulse Rate 110 H 112 H Pulse Rate [ Apical] Pulse Rate [ Left] Respiratory 26 H 25 H Rate Blood Pressure 193/131 172/116 Blood Pressure [Left Arm] Blood Pressure [Right] O2 Sat by Pulse 96 Oximetry (%) GENERAL: Awake, alert, and fully oriented, in no acute distress. cushingoid appearance HEAD: Normal with no signs of trauma. EYES: Pupils equal, round and reactive to light, extraocular movements intact, sclera anicteric, conjunctiva clear. No lid lag. EARS, NOSE, THROAT:Moist mucous membranes. NECK: supple without JVD (hard to appreciate due to girth), no masses. LUNGS: r base ronchi HEART: tacy rate and regular rhythm, normal S1 and S2 systolic murmur grade 2 ABDOMEN: obese, Soft, nontender, not distended, normoactive bowel sounds, no guarding, no rebound, no masses. 2+ pitting edema up to lower stomach. Scrotum: 3+ edema baseball size, nontender MUSCULOSKELETAL: No CVA tenderness. UPPER EXTREMITIES: 2+ pulses, warm, well-perfused. No cyanosis. No clubbing. No peripheral edema. LOWER EXTREMITIES: 2+ pulses, warm, well-perfused. No calf tenderness. 3+ peripheral edema. NEUROLOGICAL: Cranial nerves II-XII grossly intact. Normal speech. PSYCHIATRIC: Cooperative. Good eye contact. Appropriate mood and affect. SKIN: Warm, dry, acanthosis nigricans on neck Laboratory Results - last 24 hr 10/11/17 10/11/17 10/11/17 01:00 01:00 01:00 WBC 9.8 D RBC 4.78 Hgb 14.2 Hct 42.8 MCV 89.6 MCH 29.7 MCHC 33.2 RDW 15.0 D Plt Count 246 MPV 9.2 D Neutrophils % 68.1 Lymphocytes % 18.9 Monocytes % 11.2 H Eosinophils % 1.4 Basophils % 0.4 PT with INR 14.40 H INR 1.27 H PTT (Actin FS) 32.6 D-Dimer VBG pH 7.37 POC VBG pCO2 44.7 POC VBG pO2 34.2 Mixed VBG HCO3 25.4 H Sodium Potassium Chloride Carbon Dioxide Anion Gap BUN Creatinine Creat Clearance w eGFR Random Glucose Hemoglobin A1c % Calcium Magnesium Total Bilirubin AST ALT Alkaline Phosphatase Creatine Kinase Creatine Kinase Index CK-MB (CK-2) Troponin I B-Natriuretic Peptide Total Protein Albumin Triglycerides Cholesterol Total LDL Cholesterol HDL Cholesterol Urine Color Urine Appearance Urine pH Ur Specific [place] Urine Protein Urine Glucose (UA) Urine Ketones Urine Blood Urine Nitrite Urine Bilirubin Urine Urobilinogen Ur Leukocyte Esterase Urine WBC (Auto) Urine RBC (Auto) Urine Bacteria Urine Mucus 10/11/17 10/11/17 10/11/17 01:00 01:00 01:00 WBC RBC Hgb Hct MCV MCH MCHC RDW Plt Count MPV Neutrophils % Lymphocytes % Monocytes % Eosinophils % Basophils % PT with INR INR PTT (Actin FS) D-Dimer 718 H VBG pH POC VBG pCO2 POC VBG pO2 Mixed VBG HCO3 Sodium 144 Potassium 4.0 Chloride 106 Carbon Dioxide 26 Anion Gap 12 BUN 14 Creatinine 0.9 Creat Clearance w eGFR > 60 Random Glucose 99 Hemoglobin A1c % Calcium 8.7 Magnesium Total Bilirubin 1.2 H AST 31 ALT 33 Alkaline Phosphatase 72 Creatine Kinase 191 Creatine Kinase Index 0.6 CK-MB (CK-2) 1.2 Troponin I 0.13 H 0.08 H B-Natriuretic Peptide 2148.16 H Total Protein 7.5 Albumin 3.8 Triglycerides Cholesterol Total LDL Cholesterol HDL Cholesterol Urine Color Urine Appearance Urine pH Ur Specific [place] Urine Protein Urine Glucose (UA) Urine Ketones Urine Blood Urine Nitrite Urine Bilirubin Urine Urobilinogen Ur Leukocyte Esterase Urine WBC (Auto) Urine RBC (Auto) Urine Bacteria Urine Mucus 10/11/17 10/11/17 10/11/17 03:00 06:00 06:00 WBC RBC Hgb Hct MCV MCH MCHC RDW Plt Count MPV Neutrophils % Lymphocytes % Monocytes % Eosinophils % Basophils % PT with INR INR PTT (Actin FS) D-Dimer VBG pH POC VBG pCO2 POC VBG pO2 Mixed VBG HCO3 Sodium Potassium Chloride Carbon Dioxide Anion Gap BUN Creatinine Creat Clearance w eGFR Random Glucose Hemoglobin A1c % Calcium Magnesium 2.1 Total Bilirubin AST ALT Alkaline Phosphatase Creatine Kinase 168 Creatine Kinase Index 0.6 CK-MB (CK-2) 1.089 Troponin I 0.09 H D B-Natriuretic Peptide Total Protein Albumin Triglycerides 58 Cholesterol 122 D Total LDL Cholesterol 104 H HDL Cholesterol 22 L D Urine Color Yellow Urine Appearance Clear Urine pH 6.0 Ur Specific [place] 1.015 Urine Protein 2+ H Urine Glucose (UA) Negative Urine Ketones Negative Urine Blood Negative Urine Nitrite Negative Urine Bilirubin Negative Urine Urobilinogen Negative Ur Leukocyte Esterase Negative Urine WBC (Auto) 1 Urine RBC (Auto) <1 Urine Bacteria Rare Urine Mucus Rare 10/11/17 10/11/17 10/11/17 06:00 06:00 06:00 WBC 10.7 H RBC 4.72 Hgb 13.9 Hct 42.5 MCV 89.9 MCH 29.3 MCHC 32.6 RDW 14.9 Plt Count 250 MPV 9.3 Neutrophils % 69.7 Lymphocytes % 19.1 Monocytes % 9.6 Eosinophils % 1.3 Basophils % 0.3 PT with INR INR PTT (Actin FS) D-Dimer VBG pH POC VBG pCO2 POC VBG pO2 Mixed VBG HCO3 Sodium Potassium Chloride Carbon Dioxide Anion Gap BUN Creatinine Creat Clearance w eGFR Random Glucose Hemoglobin A1c % 6.2 H Calcium Magnesium Total Bilirubin AST ALT Alkaline Phosphatase Creatine Kinase Creatine Kinase Index CK-MB (CK-2) Troponin I Cancelled B-Natriuretic Peptide Total Protein Albumin Triglycerides Cholesterol Total LDL Cholesterol HDL Cholesterol Urine Color Urine Appearance Urine pH Ur Specific [place] Urine Protein Urine Glucose (UA) Urine Ketones Urine Blood Urine Nitrite Urine Bilirubin Urine Urobilinogen Ur Leukocyte Esterase Urine WBC (Auto) Urine RBC (Auto) Urine Bacteria Urine Mucus 10/11/17 10/11/17 11:15 11:15 WBC RBC Hgb Hct MCV MCH MCHC RDW Plt Count MPV Neutrophils % Lymphocytes % Monocytes % Eosinophils % Basophils % PT with INR INR PTT (Actin FS) D-Dimer VBG pH POC VBG pCO2 POC VBG pO2 Mixed VBG HCO3 Sodium 136 Potassium 3.3 L Chloride 102 Carbon Dioxide 26 Anion Gap 8 BUN 11 D Creatinine 0.8 Creat Clearance w eGFR Random Glucose 92 Hemoglobin A1c % Calcium 8.8 Magnesium Total Bilirubin AST ALT Alkaline Phosphatase Creatine Kinase Creatine Kinase Index CK-MB (CK-2) Troponin I 0.05 D B-Natriuretic Peptide Total Protein Albumin Triglycerides Cholesterol Total LDL Cholesterol HDL Cholesterol Urine Color Urine Appearance Urine pH Ur Specific [place] Urine Protein Urine Glucose (UA) Urine Ketones Urine Blood Urine Nitrite Urine Bilirubin Urine Urobilinogen Ur Leukocyte Esterase Urine WBC (Auto) Urine RBC (Auto) Urine Bacteria Urine Mucus ASSESSMENT/PLAN: This is a 27 yo m with remote history of HTN (informed 6 yrs ago during physical , no physician f/u), not on any medication, who presents due to scrotal edema x 3 days. Acute decompensated CHF NYHA 2 -TTE moderately/severely reduced EF, moderate pericardial effusion, moderate TR , elevated RV pressure -CTA R pleural effusion -EKG sinus tach -Renal fxn preserved, no leukocytosis NBP >2000, borderline elevated trop trended down -likely nonischemic given young age and no unusual risk factors: possible viral etiology vs HTN vs idiopathic -needs cath to r/o ischemic etiology once stabilized -strict I and O, daily weight. -tele monitoring -Daily cxr -Diuresing well so far 5L, with symptomatic improvement (80 IV lasix total since admission); continue 40 lasix IV BID -monitor mag, phos, K -start ramipril 5 daily today (show best outcomes in literature0 and titrate to max tolerated dose over weeks -start Coreg 3.125 bid tomorrow and titrate to max tolerated dose or 50 bid over weeks -will need Zoll life vest of d/c -Cardio consult -f/u workup for secondary causes: A1C, TFT's, Lipid panel, plasma cortisol, renin, angiotensin, renal vascular US Morbid Obesity -weight loss counseling -property adjuster consult FEN fluid restrict monitor lytes as above low na diet Hep sq Dispo: ICU, expect tele xfer tomorrow AM Problem List - Problem (1) CHF (congestive heart failure) Code(s): I50.9 - HEART FAILURE, UNSPECIFIED (2) Pericardial effusion Code(s): I31.3 - PERICARDIAL EFFUSION (NONINFLAMMATORY) (3) Morbid obesity Code(s): E66.01 - MORBID (SEVERE) OBESITY DUE TO EXCESS CALORIES Visit type - Emergency Visit Emergency Visit: Yes ED Registration Date: 10/11/17 Care time: The patient presented to the Emergency Department on the above date and was hospitalized for further evaluation of their emergent condition. - New Patient This patient is new to me today: Yes Date on this admission: 10/11/17 - Critical Care Critical Care patient: Yes Total Critical Care Time (in minutes): 45 Critical Care Statement: The care of this patient involved high complexity decision making to prevent further life threatening deterioration of the patient 's condition and/or to evaluate & treat vital organ system(s) failure or risk of failure. Hospitalist Screening - Colonoscopy Questionnaire Colonoscopy Questionnaire: Colonoscopy Questionnaire - Patient: 50 - 75 years old and never had a screening colonoscopy: No History of colon or rectal polyps, or CA: No History of IBD, Crohn's disease or UC: No History of abdominal radiation therapy as a child: No - Relative: 1 with colon or rectal CA, or polyps at age 60 or younger: No Colon or rectal CA diagnosed at age 45 or younger: No Multiple relatives with colon or rectal CA: No - Outcome: Screening Result: Negative Screen
[2017-10-11] MEDS ORDERED: POTASSIUM CHLORIDE TABS 20 MEQ TABLET.ER (FP) PO ONE (16:43)
[2017-10-11] MEDS ORDERED: RAMIPRIL 5 MG CAPSULE (FP) PO ONE (17:15)
--- NOTE | 2017-10-11 19:50 | PN ---
Teaching Attending Note Name of Resident: Jacinda Chun ATTENDING PHYSICIAN STATEMENT I saw and evaluated the patient. I reviewed the resident's note and discussed the case with the resident. I agree with the resident's findings and plan as documented. SUBJECTIVE: Patient is a 27 yo male with PMHx of HTN not on any medication, who presents with worsening and extensive LE edema to his scrotal area edema x 3 days. He has decreased exercise tolerance with productive cough since may and he thinks that he developed viral syndrome then and ever since then he is not the same. He states that his father had HTN since age 30yo. He can walk several blocks w/o sob but feels sob after climbing one flight of stairs. patient urinated 5 L of fluid post IV 40 lasix . OBJECTIVE: Vital Signs Temperature 98.7 F 10/11/17 18:50 Pulse Rate 105 H 10/11/17 18:50 Respiratory Rate 26 H 10/11/17 18:50 Blood Pressure 196/118 10/11/17 18:50 O2 Sat by Pulse Oximetry (%) 96 10/11/17 15:59 GENERAL: Awake, alert, and fully oriented, in no acute distress. HEAD: Normal with no signs of trauma. EYES: Pupils equal, round and reactive to light, extraocular movements intact, sclera anicteric, conjunctiva clear. No lid lag. EARS, NOSE, THROAT:Moist mucous membranes. NECK: supple, No JVD LUNGS: decreased air entry bl , and right Base Rhonchi HEART: Tachycardic , normal S1 and S2 positive , [place] 2/6 ABDOMEN: obese, Soft, nontender, not distended, normoactive bowel sounds, no guarding, no rebound, no masses. 2+ pitting edema up to lower stomach. Scrotum: 3+ edema baseball size, nontender MUSCULOSKELETAL: No CVA tenderness. EXTREMITIES: 2+ pulses, warm, well-perfused. No calf tenderness. 3+ peripheral edema. NEUROLOGICAL: Cranial nerves II-XII grossly intact. Normal speech. PSYCHIATRIC: Cooperative. Good eye contact. Appropriate mood and affect. SKIN: Warm, dry, acanthosis nigricans on neck CBCD WBC 10.7 K/mm3 (4.0-10.0) H 10/11/17 06:00 RBC 4.72 M/mm3 (4.00-5.60) 10/11/17 06:00 Hgb 13.9 GM/dL (11.7-16.9) 10/11/17 06:00 Hct 42.5 % (35.4-49) 10/11/17 06:00 MCV 89.9 fl (80-96) 10/11/17 06:00 MCHC 32.6 g/dl (32.0-35.9) 10/11/17 06:00 RDW 14.9 % (11.9-15.9) 10/11/17 06:00 Plt Count 250 K/MM3 (134-434) 10/11/17 06:00 MPV 9.3 fl (7.5-11.1) 10/11/17 06:00 CMP Sodium 136 mmol/L (136-145) 10/11/17 11:15 Potassium 3.3 mmol/L (3.5-5.1) L 10/11/17 11:15 Chloride 102 mmol/L (98-107) 10/11/17 11:15 Carbon Dioxide 26 mmol/L (22-28) 10/11/17 11:15 Anion Gap 8 (8-16) 10/11/17 11:15 BUN 11 mg/dl (7-18) D 10/11/17 11:15 Creatinine 0.8 mg/dl (0.6-1.3) 10/11/17 11:15 Creat Clearance w eGFR > 60 (>60) 10/11/17 01:00 Random Glucose 92 mg/dl (74-106) 10/11/17 11:15 Calcium 8.8 mg/dl (8.4-10.2) 10/11/17 11:15 Total Bilirubin 1.2 mg/dl (0.2-1.0) H 10/11/17 01:00 AST 31 U/L (10-42) 10/11/17 01:00 ALT 33 U/L (10-40) 10/11/17 01:00 Alkaline Phosphatase 72 U/L (32-92) 10/11/17 01:00 Total Protein 7.5 g/dl (6.4-8.3) 10/11/17 01:00 Albumin 3.8 g/dl (3.5-5.0) 10/11/17 01:00 CARDIAC ENZYMES Creatine Kinase 168 IU/L (39-308) 10/11/17 06:00 Troponin I 0.05 ng/ml (0.00-0.06) D 10/11/17 11:15 Current Medications Generic Name Dose Route Start Last Admin Trade Name Anna PRN Reason Stop Dose Admin Carvedilol 3.125 mg 10/12/17 10:00 Coreg - PO BID RADHA Carvedilol 3.125 mg 10/11/17 20:36 Coreg - PO 10/11/17 20:37 ONCE ONE Furosemide 40 mg 10/12/17 06:00 Lasix Injection - IVPUSH BIDLASIX RADHA Heparin Sodium (Porcine) 5,000 unit 10/11/17 06:00 10/11/17 14:39 Heparin - SQ 5,000 unit TID RADHA Administration Ramipril 5 mg 10/12/17 10:00 Altace - PO DAILY RADHA Home Medications Medication Instructions Recorded NK [No Known Home Medication] 10/10/17 ASSESSMENT AND PLAN: This is a 27 yo m with remote history of HTN (diagnosed 6 yrs ago ) with no f/u with any physician, not on any medication, who presents due to having anasarca x 3 days. # Acute decompensated CHF: On IV lasix 40mg BID, echo cardio consult , cardio consulted , placed in ICU for close monitoring. CE ordered, EKG r/o ACS # Hypertensive Emergency on Lasix, Ramipril, coreg. #Morbid Obesity:weight loss counseling was initiated DVT Px:Heparin
[2017-10-11] MEDS ORDERED: CARVEDILOL 3.125 MG TABLET (FP) PO ONE (20:00)
--- NOTE | 2017-10-11 21:00 | CONSULT ---
Consult Consult Specialty:: Pulm/CCM Reason for Consultation:: Hypertensive urgency; decompensated heart failure - History of Present Illness History of Present Illness: 27 yom with PMHx morbid obesity and HTN, no home meds, no physician visits in 6+ years who presented to [place] [facility] with c/o progressive BLE and scrotal edema and decreased exercise tolerance. He also reported URI ~6mths ago with lingering productive cough. He denied headache, dizziness, fever, chills,chest pain, n/v/d, dysuria, frequency, urgency, and hematuria. In ER HR 116, BP 178/128, RR 20, O2 sat 99%. Labs notable for WBC 10.7, Trop 0.05, BNP 2148,positive d-dimer. CTA s/f no PE, moderate right pleural effusion with bibasilar atelectasis and moderate pericardial effusion, trace ascites. ECHO s/f moderate to severe global hypokinesis, reduced LVF, elevated RVPAP 40-50mmHg. He was given IV lasix 40mg, oral antihypertensives,and transferred to ICU for management In ICU rec'd A+O x3 SBP 160's-150's, HR 105. He c/o some photophobia. No focal deficits noted. He stated that he would get SOB and weakness with prolonged activity. He denied headache, dizziness, chest pain. About 5L net negative with Lasix. - History Source History Provided By: Patient, Medical Record Limitations to Obtaining History: No Limitations - Alcohol/Substance Use Hx Alcohol Use: No - Smoking History Smoking history: Never smoked Have you smoked in the past 12 months: No Home Medications - Allergies Allergies/Adverse Reactions: Allergies Allergy/AdvReac Type Severity Reaction Status Date / Time No Known Allergies Allergy Verified 10/10/17 23:23 - Home Medications Home Medications: Ambulatory Orders NK [No Known Home Medication] 10/10/17 Family Disease History - Family Disease History Family History: Unremarkable Family Disease History: CA: Father (HTN) Review of Systems - Review of Systems Constitutional: reports: Weakness Eyes: reports: No Symptoms HENT: reports: No Symptoms Neck: reports: No Symptoms Cardiovascular: reports: Shortness of Breath Respiratory: reports: SOB on Exertion Gastrointestinal: reports: No Symptoms Genitourinary: reports: No Symptoms Musculoskeletal: reports: No Symptoms Integumentary: reports: No Symptoms Neurological: reports: No Symptoms Endocrine: reports: No Symptoms Hematology/Lymphatic: reports: No Symptoms Psychiatric: reports: No Symptoms Physical Exam Vital Signs: Vital Signs Temperature 98.7 F 10/11/17 18:50 Pulse Rate 105 H 10/11/17 18:50 Respiratory Rate 26 H 10/11/17 18:50 Blood Pressure 196/118 10/11/17 18:50 O2 Sat by Pulse Oximetry (%) 96 10/11/17 15:59 Intake & Output 10/08/17 10/09/17 10/10/17 10/11/17 23:59 23:59 23:59 23:59 Intake Total 150 Output Total 6800 Balance -6650 Weight 127.006 kg 137.9 kg Constitutional: Yes: No Distress, Obese Eyes: Yes: WNL, Conjunctiva Clear HENT: Yes: Atraumatic, Normocephalic Neck: Yes: Supple, Trachea Midline Cardiovascular: Yes: Regular Rate and Rhythm, Tachycardia, S1, S2 Respiratory: Yes: Regular, CTA Bilaterally, Diminished, Wheezes (slight expiratory wheeze) Gastrointestinal: Yes: Normal Bowel Sounds, Soft Extremities: Yes: WNL Edema: Yes Edema: LLE: Trace, RLE: Trace Peripheral Pulses WNL: Yes Integumentary: Yes: WNL Neurological: Yes: Alert, Oriented ...Motor Strength: WNL Psychiatric: Yes: WNL Labs: CBC, BMP 10/11/17 06:00 10/11/17 11:15 CBC,CMP WBC 10.7 K/mm3 (4.0-10.0) H 10/11/17 06:00 RBC 4.72 M/mm3 (4.00-5.60) 10/11/17 06:00 Hgb 13.9 GM/dL (11.7-16.9) 10/11/17 06:00 Hct 42.5 % (35.4-49) 10/11/17 06:00 MCV 89.9 fl (80-96) 10/11/17 06:00 MCH 29.3 pg (25.7-33.7) 10/11/17 06:00 MCHC 32.6 g/dl (32.0-35.9) 10/11/17 06:00 RDW 14.9 % (11.9-15.9) 10/11/17 06:00 Plt Count 250 K/MM3 (134-434) 10/11/17 06:00 MPV 9.3 fl (7.5-11.1) 10/11/17 06:00 Neutrophils % 69.7 % (42.8-82.8) 10/11/17 06:00 Lymphocytes % 19.1 % (8-40) 10/11/17 06:00 Monocytes % 9.6 % (3.8-10.2) 10/11/17 06:00 Eosinophils % 1.3 % (0-4.5) 10/11/17 06:00 Basophils % 0.3 % (0-2.0) 10/11/17 06:00 Sodium 136 mmol/L (136-145) 10/11/17 11:15 Potassium 3.3 mmol/L (3.5-5.1) L 10/11/17 11:15 Chloride 102 mmol/L (98-107) 10/11/17 11:15 Carbon Dioxide 26 mmol/L (22-28) 10/11/17 11:15 Anion Gap 8 (8-16) 10/11/17 11:15 BUN 11 mg/dl (7-18) D 10/11/17 11:15 Creatinine 0.8 mg/dl (0.6-1.3) 10/11/17 11:15 Creat Clearance w eGFR > 60 (>60) 10/11/17 01:00 Random Glucose 92 mg/dl (74-106) 10/11/17 11:15 Hemoglobin A1c % 6.2 % (4.8-6.0) H 10/11/17 06:00 Calcium 8.8 mg/dl (8.4-10.2) 10/11/17 11:15 Magnesium 2.1 mg/dL (1.8-2.4) 10/11/17 06:00 Total Bilirubin 1.2 mg/dl (0.2-1.0) H 10/11/17 01:00 AST 31 U/L (10-42) 10/11/17 01:00 ALT 33 U/L (10-40) 10/11/17 01:00 Alkaline Phosphatase 72 U/L (32-92) 10/11/17 01:00 Creatine Kinase 168 IU/L (39-308) 10/11/17 06:00 Creatine Kinase Index 0.6 % (0.0-5.0) 10/11/17 06:00 CK-MB (CK-2) 1.089 ng/mL (0.5-3.6) 10/11/17 06:00 Troponin I 0.05 ng/ml (0.00-0.06) D 10/11/17 11:15 B-Natriuretic Peptide 2148.16 pg/ml (5-125) H 10/11/17 01:00 Total Protein 7.5 g/dl (6.4-8.3) 10/11/17 01:00 Albumin 3.8 g/dl (3.5-5.0) 10/11/17 01:00 Triglycerides 58 mg/dL (35-160) 10/11/17 06:00 Cholesterol 122 mg/dL (50-200) D 10/11/17 06:00 Total LDL Cholesterol 104 mg/dL (5-100) H 10/11/17 06:00 HDL Cholesterol 22 mg/dL (40-60) L D 10/11/17 06:00 Current Medications Carvedilol (Coreg -) 3.125 mg PO BID [facility] Furosemide (Lasix Injection -) 40 mg IVPUSH BIDLASIX [facility] Heparin Sodium (Porcine) (Heparin -) 5,000 unit SQ TID [facility] Last Admin: 10/11/17 23:09 Dose: 5,000 unit Hydralazine HCl (Apresoline -) 25 mg PO BID [facility] Isosorbide Dinitrate (Isordil -) 10 mg PO BIDISORDIL [facility] Isosorbide Dinitrate (Isordil -) 10 mg PO ONCE PRN PRN Reason: IF DP OVER 110 Stop: 10/12/17 02:00 Potassium Chloride (K-Dur -) 20 meq PO BID [facility] Stop: 10/13/17 10:01 Last Admin: 10/11/17 23:10 Dose: 20 meq Ramipril (Altace -) 5 mg PO BID [facility] Initial Vital Signs Pulse Resp BP Pulse Ox 116 H 20 178/128 99 10/10/17 23:25 10/10/17 23:25 10/10/17 23:25 10/10/17 23:25 Imaging - Results Chest X-ray: Report Reviewed X-ray: Report Reviewed Cat Scan: Report Reviewed Problem List - Problems (1) LV dysfunction Code(s): I51.9 - HEART DISEASE, UNSPECIFIED (2) CHF (congestive heart failure) Code(s): I50.9 - HEART FAILURE, UNSPECIFIED (3) Morbid obesity Code(s): E66.01 - MORBID (SEVERE) OBESITY DUE TO EXCESS CALORIES (4) Pericardial effusion Code(s): I31.3 - PERICARDIAL EFFUSION (NONINFLAMMATORY) Assessment/Plan 27 yom with PMHx HTN no home meds, no physician visits in 6+ years who is admitted to ICU with decompensated heart failure in the setting of hypertensive urgency c/b pericardial effusion and rt pleural effusion. Plan: -Cardiology consult -Continue antihypertensives -Cont diuresis -TTE to assess LVF and pericardial effusion -Trend BNP -ECG -Incentive spirometer -Outpatient cardiology referral for BP, CHF management -DVT prophylaxis [facility] Time 35mins
[2017-10-11] MEDS ORDERED: RAMIPRIL 5 MG CAPSULE (FP) PO SCH (22:00)
[2017-10-11] MEDS ORDERED: ISOSORBIDE DINITRATE 10 MG TABLET (FP) PO PRN (22:48)
[2017-10-11] MEDS: POTASSIUM CHLORIDE TABS 20 MEQ TABLET.ER (FP) PO SCH (23:10)
[2017-10-12] MEDS: HEPARIN NA (PORCINE) 5,000 UNITS/ML 1ML VIAL SQ SCH ×2 (05:59→13:44)
[2017-10-12] MEDS: FUROSEMIDE 40 MG/4 ML INJECTABLE VIAL IVPUSH SCH ×2 (06:00→13:44)
[2017-10-12 06:37] LABS: BASO % 0.2 % (0-2.0); EOS % 2.7 % (0-4.5); HEMATOCRIT 41.6 % (35.4-49); HEMOGLOBIN 14.1 GM/dL (11.7-16.9); MCH 30.3 pg (25.7-33.7); MCHC 33.9 g/dl (32.0-35.9); MEAN CELL VOLUME 89.5 fl (80-96); MEAN PLT VOLUME 8.9 fl (7.5-11.1); MONO % 10.7 % (3.8-10.2); NEUT % 66.4 % (42.8-82.8); PLATELET COUNT 257 K/MM3 (134-434); RBC 4.65 M/mm3 (4.00-5.60); RDW 14.3 % (11.9-15.9); WHITE BLOOD COUNT 9.6 K/mm3 (4.0-10.0)
[2017-10-12 07:08] LABS: ALBUMIN 3.3 g/dl (3.4-5.0); ANION GAP 7 (8-16); BILIRUBIN,TOTAL 1.6 mg/dL (0.2-1.0); BLOOD UREA NITROGEN 10 mg/dL (7-18); CALCIUM 8.1 mg/dL (8.5-10.1); CHLORIDE 104 mmol/L (98-107); CHOLESTEROL 127 mg/dL (50-200); CO2 30 mmol/L (21-32); GLUCOSE,RANDOM 88 mg/dL (74-106); MAGNESIUM 1.9 mg/dL (1.8-2.4); PHOSPHOROUS 4.6 mg/dL (2.5-4.9); POTASSIUM 3.4 mmol/L (3.5-5.1); SGOT/AST 24 U/L (15-37); SGPT/ALT 26 U/L (12-78); SODIUM 141 mmol/L (136-145); TOT PROT 6.9 g/dl (6.4-8.2); TRIGLYCERIDES 76 mg/dL (35-160)
[2017-10-12 07:14] LABS: ALK PHOS 62 U/L (45-117); HDL CHOLESTEROL 21 mg/dL (40-60)
[2017-10-12] MEDS ORDERED: RAMIPRIL 5 MG CAPSULE (FP) PO SCH ×2 (10:00)
[2017-10-12] MEDS ORDERED: hydrALAZINE HCL 25 MG TABLET (FP) PO SCH (10:00)
[2017-10-12] MEDS ORDERED: CARVEDILOL 3.125 MG TABLET (FP) PO SCH (10:00)
[2017-10-12] MEDS ORDERED: FUROSEMIDE 40 MG/4 ML INJECTABLE VIAL IVPUSH SCH (10:00)
[2017-10-12] MEDS: ISOSORBIDE DINITRATE 10 MG TABLET (FP) PO SCH ×2 (10:18→17:43)
[2017-10-12] MEDS: POTASSIUM CHLORIDE TABS 20 MEQ TABLET.ER (FP) PO SCH (10:18)
--- NOTE | 2017-10-12 11:06 | PN ---
<Horacio Dhaliwal - Last Filed: 10/12/17 16:21> Physical Exam: SUBJECTIVE: Patient seen and examined No acute events overnight. Patient states edema has improved. Otherwise has no current complaints. Denies fever, chills, chest pain, shortness of breath, abdominal pain. OBJECTIVE: Vital Signs Period Temp Pulse Resp BP Sys/Bailon Pulse Ox Last 24 Hr 97.8 F-99.1 F 105-119 18-32 142-196/95-131 96-96 GENERAL: Awake, alert, and fully oriented, in no acute distress. HEAD: Normal with no signs of trauma. EYES: Pupils equal, round and reactive to light, extraocular movements intact, sclera anicteric, conjunctiva clear. No lid lag. EARS, NOSE, THROAT:Moist mucous membranes. NECK: supple without JVD , no masses. LUNGS: Breath sounds qual, clear to auscultation bilaterally HEART: Tachycardic and regular rhythm, normal S1 and S2, +systolic murmur ABDOMEN: obese, Soft, nontender, not distended, normoactive bowel sounds, no guarding, no rebound, no masses. 2+ pitting edema up to lower stomach. Scrotum: 3+ edema MUSCULOSKELETAL: No CVA tenderness. UPPER EXTREMITIES: 2+ pulses, warm, well-perfused. No cyanosis. No clubbing. No peripheral edema. LOWER EXTREMITIES: 2+ pulses, warm, well-perfused. No calf tenderness. 3+ peripheral edema up to thigh NEUROLOGICAL: Cranial nerves II-XII grossly intact. Normal speech. PSYCHIATRIC: Cooperative. Good eye contact. Appropriate mood and affect. SKIN: Warm, dry, acanthosis nigricans on neck Laboratory Results - last 24 hr 10/11/17 10/11/17 10/12/17 11:15 11:15 06:15 WBC RBC Hgb Hct MCV MCH MCHC RDW Plt Count MPV Neutrophils % Lymphocytes % Monocytes % Eosinophils % Basophils % Sodium 136 Potassium 3.3 L Chloride 102 Carbon Dioxide 26 Anion Gap 8 BUN 11 D Creatinine 0.8 Creat Clearance w eGFR Random Glucose 92 Hemoglobin A1c % 6.5 H D Calcium 8.8 Phosphorus Magnesium Total Bilirubin AST ALT Alkaline Phosphatase Troponin I 0.05 D Total Protein Albumin Triglycerides Cholesterol Total LDL Cholesterol HDL Cholesterol TSH Free T4 10/12/17 10/12/17 06:15 06:15 WBC 9.6 RBC 4.65 Hgb 14.1 Hct 41.6 MCV 89.5 MCH 30.3 MCHC 33.9 RDW 14.3 Plt Count 257 MPV 8.9 Neutrophils % 66.4 Lymphocytes % 20.0 Monocytes % 10.7 H Eosinophils % 2.7 D Basophils % 0.2 Sodium 141 Potassium 3.4 L D Chloride 104 Carbon Dioxide 30 Anion Gap 7 L BUN 10 D Creatinine 1.0 D Creat Clearance w eGFR > 60 Random Glucose 88 Hemoglobin A1c % Calcium 8.1 L Phosphorus 4.6 Magnesium 1.9 Total Bilirubin 1.6 H D AST 24 D ALT 26 D Alkaline Phosphatase 62 Troponin I Total Protein 6.9 Albumin 3.3 L Triglycerides 76 D Cholesterol 127 Total LDL Cholesterol 106 H HDL Cholesterol 21 L TSH 2.05 Free T4 1.54 H Active Medications Generic Name Dose Route Start Last Admin Trade Name Freq PRN Reason Stop Dose Admin Carvedilol 3.125 mg 10/12/17 10:00 10/12/17 10:18 Coreg - PO 3.125 mg BID RADHA Administration Furosemide 40 mg 10/12/17 06:00 10/12/17 06:00 Lasix Injection - IVPUSH 40 mg BIDLASIX RADHA Administration Heparin Sodium (Porcine) 5,000 unit 10/11/17 06:00 10/12/17 05:59 Heparin - SQ 5,000 unit TID RADHA Administration Hydralazine HCl 25 mg 10/12/17 10:00 10/12/17 10:18 Apresoline - PO 25 mg BID RADHA Administration Isosorbide Dinitrate 10 mg 10/12/17 10:00 10/12/17 10:18 Isordil - PO 10 mg BIDISORDIL RADHA Administration Potassium Chloride 20 meq 10/11/17 22:00 10/12/17 10:18 K-Dur - PO 10/13/17 10:01 20 meq BID RADHA Administration Ramipril 5 mg 10/12/17 10:00 10/12/17 10:19 Altace - PO 5 mg BID ARDHA Administration ASSESSMENT/PLAN: This is a 27 yo m with remote history of HTN (not on any medications), who presented due to scrotal edema and leg swelling Acute decompensated CHF NYHA 2 with HTN -8L diuresed yesterday. 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 - New Patient This patient is new to me today: Yes Date on this admission: 10/12/17 - Critical Care Critical Care patient: Yes Total Critical Care Time (in minutes): 36 Critical Care Statement: The care of this patient involved high complexity decision making to prevent further life threatening deterioration of the patient 's condition and/or to evaluate & treat vital organ system(s) failure or risk of failure. <Bin May - Last Filed: 10/13/17 07:18> Physical Exam: As per cardiology will like to transfer patient to [facility] for further w/u. Vital Signs Temperature 99.0 F 10/12/17 14:00 Pulse Rate 107 H 10/12/17 14:00 Respiratory Rate 15 10/12/17 14:00 Blood Pressure 125/68 10/12/17 14:00 O2 Sat by Pulse Oximetry (%) 96 10/12/17 09:00 CBCD WBC 9.6 K/mm3 (4.0-10.0) 10/12/17 06:15 RBC 4.65 M/mm3 (4.00-5.60) 10/12/17 06:15 Hgb 14.1 GM/dL (11.7-16.9) 10/12/17 06:15 Hct 41.6 % (35.4-49) 10/12/17 06:15 MCV 89.5 fl (80-96) 10/12/17 06:15 MCHC 33.9 g/dl (32.0-35.9) 10/12/17 06:15 RDW 14.3 % (11.9-15.9) 10/12/17 06:15 Plt Count 257 K/MM3 (134-434) 10/12/17 06:15 MPV 8.9 fl (7.5-11.1) 10/12/17 06:15 CMP Sodium 141 mmol/L (136-145) 10/12/17 06:15 Potassium 3.4 mmol/L (3.5-5.1) L D 10/12/17 06:15 Chloride 104 mmol/L (98-107) 10/12/17 06:15 Carbon Dioxide 30 mmol/L (21-32) 10/12/17 06:15 Anion Gap 7 (8-16) L 10/12/17 06:15 BUN 10 mg/dL (7-18) D 10/12/17 06:15 Creatinine 1.0 mg/dL (0.7-1.3) D 10/12/17 06:15 Creat Clearance w eGFR > 60 (>60) 10/12/17 06:15 Random Glucose 88 mg/dL (74-106) 10/12/17 06:15 Calcium 8.1 mg/dL (8.5-10.1) L 10/12/17 06:15 Total Bilirubin 1.6 mg/dL (0.2-1.0) H D 10/12/17 06:15 AST 24 U/L (15-37) D 10/12/17 06:15 ALT 26 U/L (12-78) D 10/12/17 06:15 Alkaline Phosphatase 62 U/L (45-117) 10/12/17 06:15 Total Protein 6.9 g/dl (6.4-8.2) 10/12/17 06:15 Albumin 3.3 g/dl (3.4-5.0) L 10/12/17 06:15 CARDIAC ENZYMES Creatine Kinase 168 IU/L (39-308) 10/11/17 06:00 Troponin I 0.05 ng/ml (0.00-0.06) D 10/11/17 11:15 Current Medications Generic Name Dose Route Start Last Admin Trade Name Freq PRN Reason Stop Dose Admin Carvedilol 3.125 mg 10/12/17 10:00 10/12/17 10:18 Coreg - PO 3.125 mg BID RADHA Administration Furosemide 40 mg 10/12/17 06:00 10/12/17 13:44 Lasix Injection - IVPUSH 40 mg BIDLASIX RADHA Administration Heparin Sodium (Porcine) 5,000 unit 10/11/17 06:00 10/12/17 13:44 Heparin - SQ 5,000 unit TID RADHA Administration Hydralazine HCl 25 mg 10/12/17 10:00 10/12/17 10:18 Apresoline - PO 25 mg BID RADHA Administration Isosorbide Dinitrate 10 mg 10/12/17 10:00 10/12/17 17:43 Isordil - PO 10 mg BIDISORDIL RADHA Administration Potassium Chloride 20 meq 10/11/17 22:00 10/12/17 10:18 K-Dur - PO 10/13/17 10:01 20 meq BID RADHA Administration Ramipril 5 mg 10/12/17 10:00 10/12/17 10:19 Altace - PO 5 mg BID RADHA Administration Home Medications Medication Instructions Recorded NK [No Known Home Medication] 10/10/17 Correction: Ramipril 5mg BID .
--- NOTE | 2017-10-12 12:02 | PN ---
Teaching Attending Note Name of Resident: Hermann Rich ATTENDING PHYSICIAN STATEMENT I saw and evaluated the patient. I reviewed the resident's note and discussed the case with the resident. I agree with the resident's findings and plan as documented. SUBJECTIVE: Pt seen and examined in the ICU. Diuresing well with lasix. Denies shortness of breath. Leg swelling improving. Bedside ultrasound showing minimal right effusion. OBJECTIVE: Last Vital Signs Temp Pulse Resp BP Pulse Ox 99.1 F 114 H 31 H 159/102 96 10/12/17 10:00 10/12/17 10:00 10/12/17 10:00 10/12/17 10:00 10/12/17 09:00 Intake & Output 10/09/17 10/10/17 10/11/17 10/12/17 23:59 23:59 23:59 23:59 Intake Total 150 240 Output Total 8300 2400 Balance -8150 -2160 Weight 127.006 kg 137.9 kg 134.535 kg Gen: NAD at rest Heart: tachycardic, regular Lung: decreased breath sounds at the bases Abd: soft, nontender Ext: trace edema CBC, BMP 10/12/17 06:15 10/12/17 06:15 Active Medications Carvedilol (Coreg -) 3.125 mg PO BID [facility] Last Admin: 10/12/17 10:18 Dose: 3.125 mg Furosemide (Lasix Injection -) 40 mg IVPUSH BIDLASIX [facility] Last Admin: 10/12/17 06:00 Dose: 40 mg Heparin Sodium (Porcine) (Heparin -) 5,000 unit SQ TID [facility] Last Admin: 10/12/17 05:59 Dose: 5,000 unit Hydralazine HCl (Apresoline -) 25 mg PO BID [facility] Last Admin: 10/12/17 10:18 Dose: 25 mg Isosorbide Dinitrate (Isordil -) 10 mg PO BIDISORDIL [facility] Last Admin: 10/12/17 10:18 Dose: 10 mg Potassium Chloride (K-Dur -) 20 meq PO BID [facility] Stop: 10/13/17 10:01 Last Admin: 10/12/17 10:18 Dose: 20 meq Potassium Chloride (K-Dur -) 20 meq PO ONCE ONE Stop: 10/12/17 14:01 Ramipril (Altace -) 5 mg PO BID [facility] Last Admin: 10/12/17 10:19 Dose: 5 mg ASSESSMENT AND PLAN: Acute on ?Chronic Systolic Heart Failure Pleural Effusion Pericardial Effusion Hypertensive Urgency Proteinuria - IV lasix - monitor urine output, creatinine - beta eyad, FELIX-I - replete lytes - renal artery dopplers - send BARBARA, ESR, CRP - f/u renin, aldosterone levels - HIV screen - cardiology eval - consider renal eval for proteinuria - DVT prophylaxis - continue ICU monitoring for now critical care time spent in reviewing chart, evaluating patient and formulating plan 35 min
[2017-10-12] MEDS ORDERED: POTASSIUM CHLORIDE TABS 20 MEQ TABLET.ER (FP) PO ONE (14:00)
--- NOTE | 2017-10-12 14:51 | PN ---
Physical Exam: SUBJECTIVE: Patient seen and examined No acute events overnight. Pt denies BARRON, blurry vision, lightheadedness, SOB, chest pain, abdominal pain, n/v/d/c, and dysuria. He has no complaints. OBJECTIVE: Vital Signs Period Temp Pulse Resp BP Sys/Balion Pulse Ox Last 24 Hr 98 F-99.1 F 105-119 18-32 142-196/95-131 96-96 GENERAL: The patient is awake, alert, and fully oriented, in no acute distress. HEENT: NC, AT, EOMI, PEARLLA LUNGS: Breath sounds equal, clear to auscultation bilaterally, no wheezes, no crackles, no accessory muscle use. HEART: Regular rate and rhythm, S1, S2 without murmur, rub or gallop. ABDOMEN: obese abdomen, soft, nontender, normoactive bowel sounds EXTREMITIES: 2+ pitting edema in b/l LE NEUROLOGICAL: Cranial nerves II through XII grossly intact. Normal speech, gait not observed. Laboratory Results - last 24 hr 10/12/17 10/12/17 10/12/17 06:15 06:15 06:15 WBC 9.6 RBC 4.65 Hgb 14.1 Hct 41.6 MCV 89.5 MCH 30.3 MCHC 33.9 RDW 14.3 Plt Count 257 MPV 8.9 Neutrophils % 66.4 Lymphocytes % 20.0 Monocytes % 10.7 H Eosinophils % 2.7 D Basophils % 0.2 ESR Sodium 141 Potassium 3.4 L D Chloride 104 Carbon Dioxide 30 Anion Gap 7 L BUN 10 D Creatinine 1.0 D Creat Clearance w eGFR > 60 Random Glucose 88 Hemoglobin A1c % 6.5 H D Calcium 8.1 L Phosphorus 4.6 Magnesium 1.9 Total Bilirubin 1.6 H D AST 24 D ALT 26 D Alkaline Phosphatase 62 C-Reactive Protein Total Protein 6.9 Albumin 3.3 L Triglycerides 76 D Cholesterol 127 Total LDL Cholesterol 106 H HDL Cholesterol 21 L TSH 2.05 Free T4 1.54 H 10/12/17 10/12/17 06:15 12:34 WBC RBC Hgb Hct MCV MCH MCHC RDW Plt Count MPV Neutrophils % Lymphocytes % Monocytes % Eosinophils % Basophils % ESR 10 Sodium Potassium Chloride Carbon Dioxide Anion Gap BUN Creatinine Creat Clearance w eGFR Random Glucose Hemoglobin A1c % Calcium Phosphorus Magnesium Total Bilirubin AST ALT Alkaline Phosphatase C-Reactive Protein 0.8 H Total Protein Albumin Triglycerides Cholesterol Total LDL Cholesterol HDL Cholesterol TSH Free T4 Active Medications Generic Name Dose Route Start Last Admin Trade Name Freq PRN Reason Stop Dose Admin Carvedilol 3.125 mg 10/12/17 10:00 10/12/17 10:18 Coreg - PO 3.125 mg BID RADHA Administration Furosemide 40 mg 10/12/17 06:00 10/12/17 13:44 Lasix Injection - IVPUSH 40 mg BIDLASIX RADHA Administration Heparin Sodium (Porcine) 5,000 unit 10/11/17 06:00 10/12/17 13:44 Heparin - SQ 5,000 unit TID RADHA Administration Hydralazine HCl 25 mg 10/12/17 10:00 10/12/17 10:18 Apresoline - PO 25 mg BID RADHA Administration Isosorbide Dinitrate 10 mg 10/12/17 10:00 10/12/17 10:18 Isordil - PO 10 mg BIDISORDIL RADHA Administration Potassium Chloride 20 meq 10/11/17 22:00 10/12/17 10:18 K-Dur - PO 10/13/17 10:01 20 meq BID RADHA Administration Ramipril 5 mg 10/12/17 10:00 10/12/17 10:19 Altace - PO 5 mg BID RADHA Administration ASSESSMENT/PLAN: 27M with remote history of HTN (not on any medications) who presented with acute scrotal edema and leg swelling, admitted for heart failure and uncontrolled HTN. CV #Acute decompensated CHF NYHA 2 in addition to severe HTN -etiology unclear -f/u labs/imaging including ESR, CRP, renal artery doppler -cardiology on board, recs appreciated -Continue IV lasix 40 bid, ramipril 5mg daily, coreg 3.125 mg bid -Started on isosorbide and hydralazine per cardiology -Strict i/o -daily weight -monitor electrolytes -Telemetry monitoring -will likely need cath to r/o ischemic etiology GI #Morbid Obesity -weight loss counseling -RD consult FEN/ppx -fluid restrict -replete K -low Na diet -no GI ppx indicated -heparin Case discussed with attending, Dr. Alfonso. -Hermann Rich MD PGY1 ICU Team Visit type - Emergency Visit Emergency Visit: Yes ED Registration Date: 10/11/17 Care time: The patient presented to the Emergency Department on the above date and was hospitalized for further evaluation of their emergent condition. - New Patient This patient is new to me today: Yes Date on this admission: 10/13/17 - Critical Care Critical Care patient: Yes Total Critical Care Time (in minutes): 37 Critical Care Statement: The care of this patient involved high complexity decision making to prevent further life threatening deterioration of the patient 's condition and/or to evaluate & treat vital organ system(s) failure or risk of failure.
[2017-10-12 15:35] VITALS: BP 125/68; PULSE 107; TEMP 99
--- NOTE | 2017-10-12 15:56 | CON.CARD ---
Consult Consult Specialty:: Cardiology Referred by:: Tor Arellano Reason for Consultation:: CHF - History of Present Illness Chief Complaint: LE edema History of Present Illness: 27 year old male with a no pmhx how presents with progressive LE edema and dyspnea on exertion. Reports symptoms last 1 1/2 weeks but seems like has been having a cough since May and possible sob since . No chest pain. No pnd, orthopnea, or edema. No palpitations. No recent viral illness, possible fever back in May. No toxic habits. No dietary or nutritional supplements (weight loss pills or stimulants). Family history of grandfather and uncles with htn and cardiomegaly - History Source History Provided By: Patient - Alcohol/Substance Use Hx Alcohol Use: No - Smoking History Smoking history: Never smoked Have you smoked in the past 12 months: No Home Medications - Allergies Allergies/Adverse Reactions: Allergies Allergy/AdvReac Type Severity Reaction Status Date / Time No Known Allergies Allergy Verified 10/10/17 23:23 - Home Medications Home Medications: Ambulatory Orders NK [No Known Home Medication] 10/10/17 Family Disease History - Family Disease History Family Disease History: CA: Father (HTN) Vital Signs: Vital Signs Temperature 99.0 F 10/12/17 14:00 Pulse Rate 107 H 10/12/17 14:00 Respiratory Rate 15 10/12/17 14:00 Blood Pressure 125/68 10/12/17 14:00 O2 Sat by Pulse Oximetry (%) 96 10/12/17 09:00 Constitutional: Yes: No Distress Neck: Yes: Supple Respiratory: Yes: Diminished Gastrointestinal: Yes: Soft, Abdomen, Obese Cardiovascular: Yes: Tachycardia JVD: Yes Carotid Bruit: No Heart Sounds: Yes: S1, S2 Murmur: No: Systolic Murmur Edema: LLE: 3+, RLE: 3+ - Other Data Labs, Other Data: CBC, BMP 10/12/17 06:15 10/12/17 06:15 INR, PTT INR 1.27 (0.82-1.09) H 10/11/17 01:00 Imaging - Results Chest X-ray: Report Reviewed EKG: Image Reviewed Problem List - Problems (1) CHF (congestive heart failure) Code(s): I50.9 - HEART FAILURE, UNSPECIFIED Assessment/Plan 27 year old male with a no pmhx how presents with progressive LE edema and dyspnea on exertion. Reports symptoms last 1 1/2 weeks but seems like has been having a cough since May and possible sob since . No chest pain. No pnd, orthopnea, or edema. No palpitations. No recent viral illness, possible fever back in May. No toxic habits. No dietary or nutritional supplements (weight loss pills or stimulants). Family history of grandfather and uncles with htn and cardiomegaly EKG CXR BNP 2148 BP on admission 178/128 Echocardiogram with mod to sev LV systolic dysfunction with small to mod pericardial effusion. RVSP 40-50 1) Acute systolic chf exacerbation. - Unclear etiology at this time. Severely htn on admission but echo with no LVH or LV dilatation No clear viral syndrome prior to CHF episode Needs IV diurese with 40mg furosemide bid Monitor lytes, bun/cr, and I/O's Started on carvedilol, ramipril, and bidil. Will likely increase ramipril first. Will need ischemia eval eventually, JEIMY evaluation Will transfer to [facility] for further management and CHF evaluation for consideration of RV biopsy or possible cardiac MRI
[2017-10-13 06:09] LABS: HEP.C VIRUS AB 0.1 s/co ratio (0.0-0.9)
[2017-10-13 06:09] LABS: CORTISOL AM 10.2 ug/dL (.)
--- NOTE | 2017-10-13 07:12 | DS ---
Physical Exam: Microbiology 10/11/17 11:15 Urine - Urine Clean Catch Urine Culture - Final NO GROWTH OBTAINED Selected Entries 10/12/17 10/12/17 09:00 14:00 Temperature 99.0 F Pulse Rate 107 H Respiratory 15 Rate Blood Pressure 125/68 O2 Sat by Pulse 96 Oximetry (%) Oxygen Delivery Room Air Method Laboratory Tests 10/11/17 10/11/17 10/11/17 01:00 01:00 01:00 WBC Hgb Hct Plt Count ESR INR 1.27 H PTT (Actin FS) 32.6 D-Dimer Sodium Potassium Chloride Carbon Dioxide Anion Gap BUN Creatinine Creat Clearance w eGFR Random Glucose Hemoglobin A1c % Troponin I 0.13 H 0.08 H C-Reactive Protein B-Natriuretic Peptide 2148.16 H Triglycerides Cholesterol Total LDL Cholesterol HDL Cholesterol TSH Free T4 Cortisol AM Sample Urine Protein Urine Glucose (UA) Urine Ketones Urine Blood Urine Nitrite Urine Bilirubin Urine Urobilinogen Ur Leukocyte Esterase Urine WBC (Auto) Urine RBC (Auto) Urine Bacteria Urine Mucus BARBARA Screen Lyme Screen IgG & IgM Lyme IgM Ab Index Hepatitis A IgM Ab Hep Bs Antigen Hep B Core IgM Ab Hep C Ab Diagnostic Hepatitis C Antibody HIV 1&2 Ag/Ab, 4th Gen 10/11/17 10/11/17 10/11/17 01:00 03:00 06:00 WBC Hgb Hct Plt Count ESR INR PTT (Actin FS) D-Dimer 718 H Sodium Potassium Chloride Carbon Dioxide Anion Gap BUN Creatinine Creat Clearance w eGFR Random Glucose Hemoglobin A1c % Troponin I 0.09 H D C-Reactive Protein B-Natriuretic Peptide Triglycerides Cholesterol Total LDL Cholesterol HDL Cholesterol TSH Free T4 Cortisol AM Sample Urine Protein 2+ H Urine Glucose (UA) Negative Urine Ketones Negative Urine Blood Negative Urine Nitrite Negative Urine Bilirubin Negative Urine Urobilinogen Negative Ur Leukocyte Esterase Negative Urine WBC (Auto) 1 Urine RBC (Auto) <1 Urine Bacteria Rare Urine Mucus Rare BARBARA Screen Lyme Screen IgG & IgM Lyme IgM Ab Index Hepatitis A IgM Ab Hep Bs Antigen Hep B Core IgM Ab Hep C Ab Diagnostic Hepatitis C Antibody HIV 1&2 Ag/Ab, 4th Gen 10/11/17 10/12/17 10/12/17 11:15 06:15 06:15 WBC 9.6 Hgb 14.1 Hct 41.6 Plt Count 257 ESR INR PTT (Actin FS) D-Dimer Sodium Potassium Chloride Carbon Dioxide Anion Gap BUN Creatinine Creat Clearance w eGFR Random Glucose Hemoglobin A1c % 6.5 H D Troponin I 0.05 D C-Reactive Protein B-Natriuretic Peptide Triglycerides Cholesterol Total LDL Cholesterol HDL Cholesterol TSH Free T4 Cortisol AM Sample Urine Protein Urine Glucose (UA) Urine Ketones Urine Blood Urine Nitrite Urine Bilirubin Urine Urobilinogen Ur Leukocyte Esterase Urine WBC (Auto) Urine RBC (Auto) Urine Bacteria Urine Mucus BARBARA Screen Lyme Screen IgG & IgM Lyme IgM Ab Index Hepatitis A IgM Ab Hep Bs Antigen Hep B Core IgM Ab Hep C Ab Diagnostic Hepatitis C Antibody HIV 1&2 Ag/Ab, 4th Gen 10/12/17 10/12/17 10/12/17 06:15 06:15 06:15 WBC Hgb Hct Plt Count ESR INR PTT (Actin FS) D-Dimer Sodium 141 Potassium 3.4 L D Chloride 104 Carbon Dioxide 30 Anion Gap 7 L BUN 10 D Creatinine 1.0 D Creat Clearance w eGFR > 60 Random Glucose 88 Hemoglobin A1c % Troponin I C-Reactive Protein B-Natriuretic Peptide Triglycerides 76 D Cholesterol 127 Total LDL Cholesterol 106 H HDL Cholesterol 21 L TSH 2.05 Free T4 1.54 H Cortisol AM Sample 10.2 Urine Protein Urine Glucose (UA) Urine Ketones Urine Blood Urine Nitrite Urine Bilirubin Urine Urobilinogen Ur Leukocyte Esterase Urine WBC (Auto) Urine RBC (Auto) Urine Bacteria Urine Mucus BARBARA Screen Pending Lyme Screen IgG & IgM Lyme IgM Ab Index Hepatitis A IgM Ab Hep Bs Antigen Hep B Core IgM Ab Hep C Ab Diagnostic Hepatitis C Antibody HIV 1&2 Ag/Ab, 4th Gen 10/12/17 10/12/17 10/12/17 06:15 10:05 10:05 WBC Hgb Hct Plt Count ESR INR PTT (Actin FS) D-Dimer Sodium Potassium Chloride Carbon Dioxide Anion Gap BUN Creatinine Creat Clearance w eGFR Random Glucose Hemoglobin A1c % Troponin I C-Reactive Protein 0.8 H B-Natriuretic Peptide Triglycerides Cholesterol Total LDL Cholesterol HDL Cholesterol TSH Free T4 Cortisol AM Sample Urine Protein Urine Glucose (UA) Urine Ketones Urine Blood Urine Nitrite Urine Bilirubin Urine Urobilinogen Ur Leukocyte Esterase Urine WBC (Auto) Urine RBC (Auto) Urine Bacteria Urine Mucus BARBARA Screen Lyme Screen IgG & IgM Lyme IgM Ab Index Hepatitis A IgM Ab Negative Hep Bs Antigen Negative Hep B Core IgM Ab Negative Hep C Ab Diagnostic Pending Hepatitis C Antibody 0.1 HIV 1&2 Ag/Ab, 4th Gen Non reactive 10/12/17 10/12/17 10/12/17 10:05 12:34 18:57 WBC Hgb Hct Plt Count ESR 10 INR PTT (Actin FS) D-Dimer Sodium Potassium Chloride Carbon Dioxide Anion Gap BUN Creatinine Creat Clearance w eGFR Random Glucose Hemoglobin A1c % Troponin I C-Reactive Protein B-Natriuretic Peptide Triglycerides Cholesterol Total LDL Cholesterol HDL Cholesterol TSH Free T4 Cortisol AM Sample Urine Protein Urine Glucose (UA) Urine Ketones Urine Blood Urine Nitrite Urine Bilirubin Urine Urobilinogen Ur Leukocyte Esterase Urine WBC (Auto) Urine RBC (Auto) Urine Bacteria Urine Mucus BARBARA Screen Lyme Screen IgG & IgM Pending Lyme IgM Ab Index Cancelled Hepatitis A IgM Ab Hep Bs Antigen Hep B Core IgM Ab Hep C Ab Diagnostic Hepatitis C Antibody HIV 1&2 Ag/Ab, 4th Gen Imaging: CXR- Imaging reveals a large heart, congestive changes, sharp angles, intact bones and prominent soft tissues. CTA- 1. Limited study without gross evidence of pulmonary embolism. 2. Moderate right pleural effusion with basilar atelectasis. 3. Moderate pericardial effusion. 4. Mild congestion versus chronic lung disease. 5. Trace ascites. Limited study as described above. ECHO- Moderate TR, RVSP- 40-50 mmhg, Moderate pericardial effusion, moderate to severe global hypokinesis of LV and moderate to severely reduced LVSF. RENAL U/S- Normal appearing right kidney. Limited visualization of the left kidney that appears morphologically unremarkable without gross evidence of hydronephrosis or stones. CXR- A single view reveals a large heart, normal aorta, prominent central markings but no sign of A true infiltrate. The angles are sharp. The bones and soft tissues are intact. Since 10/11/2017, there is no change of an adverse nature. HOSPITAL COURSE: Date of Admission:10/11/17 Date of Discharge: 10/13/17 27 yo m with remote history of HTN, not on any medication, who presented due to bilateral lower extremity edema and scrotal edema x 3 days. Patient found to be in acute congestive heart failure of unknown etiology. Patient diuresed well and restarted on antiHTN. Echo and renal u/s performed, results above. Multiple labs sent off--results above. Patient seen by cardiology. Patient may need ischemic evaluation in the future and was transferred to [facility] for further management and CHF evaluation for consideration of RV biopsy or possible cardiac MRI. Minutes to complete discharge: 45 Discharge Summary Reason For Visit: HYPERTENSION,PERICARDIAL EFFUSION Condition: Fair - Instructions Referrals: Ronni Frye MD [Staff Physician] - Disposition: TRANSFER ACUTE CARE/OTHER HOSP - Home Medications Comprehensive Discharge Medication List: Ambulatory Orders NK [No Known Home Medication] 10/10/17 This patient is new to me today: No Emergency Visit: Yes ED Registration Date: 10/11/17 Care time: The patient presented to the Emergency Department on the above date and was hospitalized for further evaluation of their emergent condition. Critical Care patient: Yes Total Critical Care Time (in minutes): 45 Critical Care Statement: The care of this patient involved high complexity decision making to prevent further life threatening deterioration of the patient 's condition and/or to evaluate & treat vital organ system(s) failure or risk of failure. - Discharge Referral Referred to [facility] No
[2017-10-14 16:22] LABS: RENIN ACTIVITY(PRA) 0.682 ng/mL/hr (0.167-5.380)
--- NOTE | 2017-10-16 11:44 | EKG ---
Test Reason : Blood Pressure : / mmHG Vent. Rate : 116 BPM Atrial Rate : 116 BPM P-R Int : 158 ms QRS Dur : 086 ms QT Int : 360 ms P-R-T Axes : 010 060 004 degrees QTc Int : 500 ms SINUS TACHYCARDIA OTHERWISE NORMAL ECG NO PREVIOUS ECGS AVAILABLE Confirmed by YOJANA VANESSA MD ([id number]) on 10/16/2017 11:44:20 AM Referred By: MD RODRIGUEZ Confirmed By:YOJANA VANESSA MD
== END 2017-10-12 20:30 | disposition short-term general hospital (02) | DRG 194 ==
LOC: FER 23:21 → JICU 10-11 15:27
PROVIDERS: ADMIT Internal Medicine; ATTEND Internal Medicine
DX: I11.0 Hypertensive heart disease with heart failure (principal); I16.0 Hypertensive urgency; I50.21 Acute systolic (congestive) heart failure; R60.9 Edema, unspecified; I31.3 Pericardial effusion (noninflammatory); R00.0 Tachycardia, unspecified; R80.9 Proteinuria, unspecified; E66.01 Morbid (severe) obesity due to excess calories; Z68.42 Body mass index [BMI] 45.0-49.9, adult
CPT/HCPCS: 36415; 71045-TC-FY; 71046-TC-FY; 71275-TC; 76775-TC; 80048; 80053; 80061; 80074; 81003; 81015; 82088; 82533; 82550; 82553; 82803; 83036; 83721; 83735; 83880; 84100; 84244; 84439; 84443; 84484; 85025; 85379; 85610; 85651; 85730; 86038; 86140; 86618; 87086; 93005; 93010; 93306-TC; 99285-25; J1644